=== PATIENT | male | born 1935 | race Caucasian/White ===

== ENCOUNTER 2016-08-16 11:05 | Emergency (ER) | payer MEDICARE, OTHER ==
[~2016-08-16] VITALS: Ht 175.3 cm; Wt 97.2 kg
[~2016-08-16 11:05] MED LIST: ALLO300 PO; COZA25TA PO; KETO2SHA5 TOP; METO10TA PO; OMEP20TA39 PO; PATA0.2S EACH EYE; PROBCAP4 PO; RAPA8CAP PO; ROSU10 PO; [UNRECOGNIZED DRUG - OTHER] TOP
[2016-08-16 11:08] VITALS: BP 134/78; PULSE 54; RESP 16; TEMP 97.4; O2SAT 97
[2016-08-16] MEDS ORDERED: SODIUM CHLOR 0.9% 1000 ML INJ 1,000 ML IV SCH (11:21)
[2016-08-16 11:29] LABS: BLOOD, URINE NEG (NEG); GLUCOSE,URINE NEG (NEG); KETONE, URINE NEG (NEG); NITRITE,URINE NEG (NEG)
[2016-08-16] MEDS ORDERED: SODIUM CHLORIDE 0.9% FLUSH 5 ML FLUSH IVF PRN (11:30)
[2016-08-16 11:34] VITALS: RESP 16; O2SAT 97
[2016-08-16 11:38] LABS: AUTOMATED NEUTROPHIL # 6.5 TH/MM3 (1.8-7.7); BASOPHIL # 0.1 TH/MM3 (0-0.2); BASOPHIL % 0.7 % (0.0-2.0); EOSINOPHIL # 0.1 TH/MM3 (0-0.4); EOSINOPHIL % 1.4 % (0.0-4.0); LYMPH % 15.9 % (9.0-44.0); LYMPHOCYTE # 1.4 TH/MM3 (1.0-4.8); MEAN CELL VOLUME 83.4 FL (80.0-100.0); MEAN CORPUSCULAR HEMOGLOBIN 27.7 PG (27.0-34.0); MEAN CORPUSCULAR HGB CONC 33.2 % (32.0-36.0); MONO % 6.4 % (0.0-8.0); NEUT % 75.6 % (16.0-70.0); PLATELET COUNT 214 TH/MM3 (150-450); RED BLOOD COUNT 4.55 MIL/MM3 (4.50-5.90); WHITE BLOOD COUNT 8.6 TH/MM3 (4.0-11.0)
[2016-08-16 11:39] LABS: HEMO FLAGS DIFF FINAL
--- NOTE | 2016-08-16 11:41 | PD ---
HPI Chief Complaint: GI Complaint Time Seen by Provider: 11:14 Travel History International Travel<30 days: No Contact w/Intl Traveler<30days: No Traveled to known affect area: No History of Present Illness HPI The patient is a 81-year-old male who presents to the emergency department for abdominal pain and distention of 1 week's duration. The patient notes a one-week history of abdominal pain and distention, slightly worse after eating, with mild periumbilical lower abdominal pain. The patient does have a history of diverticulitis with similar symptoms in the past, however, underwent partial colectomy. The patient also has a previous history of cholecystectomy. The patient does have a history of ileus, is unsure if he has any previous history of bowel obstruction. The patient's last bowel movement was yesterday, slightly hard, states it was "constipated". The patient has been passing gas intermittently, denies any nausea or vomiting. The patient was able to eat cereal for breakfast without any significant symptoms. The patient denies any dysuria, frequency, or urgency. The patient was seen by his primary physician and referred to the emergency department for CT of the abdomen and pelvis. He denies any associated fever, chills, or sweats. PFSH Past Medical History Arthritis: Yes Asthma: Yes Blood Disorders: No Heart Rhythm Problems: No Cancer: Yes (SKIN, PROSTATE) Cardiovascular Problems: Yes ([place]) High Cholesterol: Yes Chemotherapy: No Chest Pain: No Congestive Heart Failure: No Diabetes: No Diminished Hearing: No Diverticulitis: Yes Endocrine: No Gastrointestinal Disorders: Yes (HX DIVERTICULITIS ;GERD, CURRENT ABD. PAIN BEING REVIEWED) GERD: Yes Glaucoma: No Gout: Yes Genitourinary: Yes (HX PROSTATE CANCER- RADIATION [place] 2007) Hepatitis: No Hiatal Hernia: Yes Hypertension: Yes Immune Disorder: No Implanted Vascular Access Dvce: Yes Kidney Stones: No Medical other: No Musculoskeletal: Yes (ARTHRITIS, RIGHT SHOULDER PAIN, BACK SPASMS) Neurologic: No Psychiatric: No Reproductive: No Respiratory: Yes (ASTHMA (ACTIVITY INDUCED) ) Immunizations Current: Yes Myocardial Infarction: No Pancreatitis: Yes Radiation Therapy: No Renal Failure: No Thyroid Disease: No Ulcer: No PNEUMOCCOCAL Vaccine (Year): 2010 Past Surgical History Abdominal Surgery: Yes (CHOLECYSTECTOMYAPPY; UMB. HERNIA REP., PTL. COLECTOMY/ ILEOSTOMY, ) AICD: No Appendectomy: Yes Body Medical Devices: MESH UMBILICAL HERNIA Cardiac Surgery: No Cholecystectomy: Yes Ear Surgery: No Endocrine Surgery: No Eye Surgery: Yes (CATARACT FILIPE., FILIPE. VITRECTOMY) Genitourinary Surgery: Yes (TURP) Gynecologic Surgery: No Joint Replacement: Yes (PARTIAL LEFT KNEE) Neurologic Surgery: No Oral Surgery: No Pacemaker: No Thoracic Surgery: No Other Surgery: Yes (LEFT KNEE REPLACEMENT 2010, MULTIPLE SKIN CA REMOVALS) Social History Alcohol Use: Yes (OCCASIONAL BEER) Tobacco Use: No Substance Use: No Allergies-Medications (Allergen,Severity, Reaction): Coded Allergies: Dilaudid (Verified Adverse Reaction, Severe, Nausea/Vomiting, 08/16/16) PT DENIES, STATES HE GOT SICK D/T ODORS IN AREA, NOT DILAUDID Morphine (Verified Adverse Reaction, Severe, HEADACHE , 08/16/16) Reported Meds & Prescriptions Reported Meds & Active Scripts Active Reported Flonase Allergy Relief Nasal [place] (Fluticasone Nasal [place]) 50 Mcg/Act [place] 50 Mcg EACH NARE BID Ventolin Hfa 18 GM Inh (Albuterol Sulfate) 90 Mcg/Act Aer 1 Puff INH Q4H PRN Rapaflo (Silodosin) 8 Mg Cap 8 Mg PO DAILY Pataday Opth Drops (Olopatadine HCl) 0.2 % Drops 1 Drop EACH EYE DAILY Crestor (Rosuvastatin Calcium) 10 Mg Tab 10 Mg PO DAILY Omeprazole 40 Mg Cap 40 Mg PO DAILY Losartan (Losartan Potassium) 25 Mg Tab 25 Mg PO DAILY Ketoconazole Topical 2% Cream 1 Applic TOPICAL BID Zyloprim (Allopurinol) 100 Mg Tab 50 Mg PO DAILY Review of Systems Except as stated in HPI: all other systems reviewed are Neg General / Constitutional: No: Fever Cardiovascular: No: Chest Pain or Discomfort Respiratory: No: Shortness of Breath Gastrointestinal: Positive: Abdominal Pain, Constipation, Changes in Bowel Habits, No: Nausea, Vomiting, Diarrhea, Loss of Appetite Genitourinary: No: Urgency, Frequency, Dysuria Physical Exam Narrative GENERAL: Awake, alert, pleasant 81-year-old male who appears his stated age and is in no acute respiratory distress. SKIN: Warm and dry. HEAD: Atraumatic. Normocephalic. EYES: No injection or drainage. ENT: No nasal bleeding or discharge. Mucous membranes pink and moist. NECK: Trachea midline. No JVD. CARDIOVASCULAR: Regular, bradycardic with a heart rate in the 50s. RESPIRATORY: No accessory muscle use. Clear to auscultation. Breath sounds equal bilaterally. GASTROINTESTINAL: Abdomen slightly distended and tympanic. Mild tenderness of the periumbilical suprapubic region. No rebound tenderness, guarding, or rigidity. Large scar midline to right aspect of the abdomen. MUSCULOSKELETAL: No obvious deformities. No clubbing. No cyanosis. No edema. NEUROLOGICAL: Awake and alert. No obvious cranial nerve deficits. Motor grossly within normal limits. Normal speech. PSYCHIATRIC: Appropriate mood and affect; insight and judgment normal. Data Data Last Documented VS Vital Signs Date Time Temp Pulse Resp B/P Pulse Ox O2 Delivery O2 Flow Rate FiO2 08/16/16 11:34 16 97 Room Air 08/16/16 11:08 97.4 54 134/78 Orders Urinalysis - C+S If Indicated (08/16/16 11:10) Complete Blood Count With Diff (08/16/16 11:21) Comprehensive Metabolic Panel (08/16/16 11:21) Lipase (08/16/16 11:21) Lactic Acid (08/16/16 11:21) Ct Abd/Pel W/O Iv Contrast (08/16/16 11:21) Iv Access Insert/Monitor (08/16/16 11:21) Ecg Monitoring (08/16/16 11:21) Oximetry (08/16/16 11:21) Sodium Chlor 0.9% 1000 Ml Inj (Ns 1000 M (08/16/16 11:21) Sodium Chloride 0.9% Flush (Ns Flush) (08/16/16 11:30) Metronidazole 500 Mg Inj (Flagyl 500 Mg (08/16/16 12:30) Ciprofloxacin (Cipro) (08/16/16 12:30) Labs Laboratory Tests Test 08/16/16 08/16/16 11:15 11:25 Urine Color YELLOW Urine Turbidity CLEAR Urine pH 6.0 Urine Specific [place] 1.015 Urine Protein 30 mg/dL Urine Glucose (UA) NEG mg/dL Urine Ketones NEG mg/dL Urine Occult Blood NEG Urine Nitrite NEG Urine Bilirubin NEG Urine Leukocyte Esterase NEG Urine WBC 0-2 /hpf Urine Squamous Epithelial 0-5 /hpf Cells Microscopic Urinalysis Comment CULT NOT INDICATED White Blood Count 8.6 TH/MM3 Red Blood Count 4.55 MIL/MM3 Hemoglobin 12.6 GM/DL Hematocrit 38.0 % Mean Corpuscular Volume 83.4 FL Mean Corpuscular Hemoglobin 27.7 PG Mean Corpuscular Hemoglobin 33.2 % Concent Red Cell Distribution Width 16.0 % Platelet Count 214 TH/MM3 Mean Platelet Volume 8.4 FL Neutrophils (%) (Auto) 75.6 % Lymphocytes (%) (Auto) 15.9 % Monocytes (%) (Auto) 6.4 % Eosinophils (%) (Auto) 1.4 % Basophils (%) (Auto) 0.7 % Neutrophils # (Auto) 6.5 TH/MM3 Lymphocytes # (Auto) 1.4 TH/MM3 Monocytes # (Auto) 0.5 TH/MM3 Eosinophils # (Auto) 0.1 TH/MM3 Basophils # (Auto) 0.1 TH/MM3 CBC Comment DIFF FINAL Differential Comment Sodium Level 142 MEQ/L Potassium Level 4.3 MEQ/L Chloride Level 108 MEQ/L Carbon Dioxide Level 25.2 MEQ/L Anion Gap 9 MEQ/L Blood Urea Nitrogen 16 MG/DL Creatinine 1.30 MG/DL Estimat Glomerular Filtration 53 ML/MIN Rate Random Glucose 129 MG/DL Lactic Acid Level 1.4 mmol/L Calcium Level 9.2 MG/DL Total Bilirubin 0.4 MG/DL Aspartate Amino Transf 27 U/L (AST/SGOT) Alanine Aminotransferase 33 U/L (ALT/SGPT) Alkaline Phosphatase 59 U/L Total Protein 7.2 GM/DL Albumin 3.6 GM/DL Lipase 211 U/L [facility] Medical Decision Making Medical Screen Exam Complete: Yes Emergency Medical Condition: Yes Medical Record Reviewed: Yes Interpretation(s) Laboratory Tests Test 08/16/16 08/16/16 11:15 11:25 Urine Color YELLOW Urine Turbidity CLEAR Urine pH 6.0 Urine Specific [place] 1.015 Urine Protein 30 mg/dL Urine Glucose (UA) NEG mg/dL Urine Ketones NEG mg/dL Urine Occult Blood NEG Urine Nitrite NEG Urine Bilirubin NEG Urine Leukocyte Esterase NEG Urine WBC 0-2 /hpf Urine Squamous Epithelial 0-5 /hpf Cells Microscopic Urinalysis Comment CULT NOT INDICATED White Blood Count 8.6 TH/MM3 Red Blood Count 4.55 MIL/MM3 Hemoglobin 12.6 GM/DL Hematocrit 38.0 % Mean Corpuscular Volume 83.4 FL Mean Corpuscular Hemoglobin 27.7 PG Mean Corpuscular Hemoglobin 33.2 % Concent Red Cell Distribution Width 16.0 % Platelet Count 214 TH/MM3 Mean Platelet Volume 8.4 FL Neutrophils (%) (Auto) 75.6 % Lymphocytes (%) (Auto) 15.9 % Monocytes (%) (Auto) 6.4 % Eosinophils (%) (Auto) 1.4 % Basophils (%) (Auto) 0.7 % Neutrophils # (Auto) 6.5 TH/MM3 Lymphocytes # (Auto) 1.4 TH/MM3 Monocytes # (Auto) 0.5 TH/MM3 Eosinophils # (Auto) 0.1 TH/MM3 Basophils # (Auto) 0.1 TH/MM3 CBC Comment DIFF FINAL Differential Comment Sodium Level 142 MEQ/L Potassium Level 4.3 MEQ/L Chloride Level 108 MEQ/L Carbon Dioxide Level 25.2 MEQ/L Anion Gap 9 MEQ/L Blood Urea Nitrogen 16 MG/DL Creatinine 1.30 MG/DL Estimat Glomerular Filtration 53 ML/MIN Rate Random Glucose 129 MG/DL Lactic Acid Level 1.4 mmol/L Calcium Level 9.2 MG/DL Total Bilirubin 0.4 MG/DL Aspartate Amino Transf 27 U/L (AST/SGOT) Alanine Aminotransferase 33 U/L (ALT/SGPT) Alkaline Phosphatase 59 U/L Total Protein 7.2 GM/DL Albumin 3.6 GM/DL Lipase 211 U/L Differential Diagnosis Differential diagnoses includes partial small bowel obstruction, ileus, pancreatitis, hernia, incarcerated hernia, diverticulitis, UTI. Narrative Course IV was established, labs were drawn and sent, and the patient was placed on cardiac telemetry monitoring and continuous pulse oximetry monitoring. UA was sent to lab. The patient declined pain medications. CT of the abdomen and pelvis was ordered. The patient's labs are unremarkable, white count is normal , LFTs are unremarkable, UA does not reveal infection. CT of the abdomen and pelvis reveals uncomplicated diverticulitis, no other acute findings. Therefore , the patient was administered Cipro 500 mg orally and Flagyl 500 mg intravenously. The patient will be discharged home on Flagyl, Cipro, and [place]. He is advised to follow-up with his primary physician and return if symptoms worsen or progress. Diagnosis Primary Impression: Diverticulitis Qualified Code: K57.32 - Diverticulitis of large intestine without perforation or abscess without bleeding Patient Instructions: General Instructions Additional Instructions: Medications as directed. Follow-up with your primary physician. Please provide the patient a copy of his labs and CT report at discharge. Return if symptoms worsen or progress. Med/Other Pt SpecificInfo: Prescription(s) given Scripts Hydrocodone-Acetaminophen ([place])5-325 mg Tab1 Tab PO Q6H PRN (PAIN) #15 TAB Ref 0 Prov:Michael Casanova MD 08/16/16 Metronidazole (Flagyl)500 Mg [id number] Mg PO BID 7 Days Ref 0 Prov:Michael Casanova MD 08/16/16 Ciprofloxacin (Cipro)500 Mg Phr833 Mg PO BID 7 Days Ref 0 Prov:Michael Casanova MD 08/16/16 Disposition: 01 DISCHARGE HOME Condition: Stable Michael Casanova MD Aug 16, 2016 11:41
[2016-08-16 11:42] LABS: URINE COLOR YELLOW (YELLW/STRAW)
[2016-08-16 11:43] LABS: COMMENT (UR) CULT NOT INDICATED; CULTURE IF INDICATED CULT NOT INDICATED; SQUAMOUS EPITHELIAL CELL URINE 0-5 /hpf (0-5); WBC, URINE 0-2 /hpf (0-5)
[2016-08-16 11:46] LABS: CHLORIDE 108 MEQ/L (98-107); POTASSIUM 4.3 MEQ/L (3.5-5.1); SODIUM (NA) 142 MEQ/L (136-145)
[2016-08-16] MEDS ORDERED: KETO2CRE TOPICAL (11:47)
[2016-08-16] MEDS ORDERED: VENTAER INH (11:47)
[2016-08-16] MEDS ORDERED: RAPA8CAP PO (11:47)
[2016-08-16] MEDS ORDERED: PATA0.2S EACH EYE (11:47)
[2016-08-16] MEDS ORDERED: OMEP40CA2 PO (11:47)
[2016-08-16] MEDS ORDERED: ALLO100 PO (11:47)
[2016-08-16] MEDS ORDERED: ROSU10 PO (11:47)
[2016-08-16] MEDS ORDERED: FLUT1SPR5 EACH NARE (11:47)
[2016-08-16] MEDS ORDERED: LOSA25TA PO (11:47)
[2016-08-16 11:51] LABS: ANION GAP 9 MEQ/L (5-15); BICARBONATE 25.2 MEQ/L (21.0-32.0); BLOOD UREA NITROGEN 16 MG/DL (7-18)
[2016-08-16 11:54] LABS: ALT (GPT) 33 U/L (12-78); AST (GOT) 27 U/L (15-37); GLOMERULAR FILTRATION RATE 53 ML/MIN (>89)
[2016-08-16 11:55] LABS: TOTAL BILIRUBIN ADULT 0.4 MG/DL (0.2-1.0)
[2016-08-16 11:56] LABS: ALKALINE PHOSPHATASE 59 U/L (45-117)
--- NOTE | 2016-08-16 12:10 | RADHPO ---
EXAM DATE/TIME: 08/16/2016 11:48 [facility] COMPARISON: CT ABDOMEN & PELVIS W CONTRAST, November 11, 2014, 19:38. INDICATIONS : Diffuse abdominal pain and constipation. ORAL CONTRAST: No oral contrast ingested. RADIATION DOSE: 21.15 CTDIvol (mGy) MEDICAL HISTORY : Diverticulitis. Gastroesophageal reflux disease. Carcinoma, prostate. SURGICAL HISTORY : Cholecystectomy. Appendectomy.Colectomy. Ileostomy. ENCOUNTER: Initial ACUITY: 1 day PAIN SCALE: 2/10 LOCATION: abdomen/pelvis TECHNIQUE: Volumetric scanning of the abdomen and pelvis was performed. Using automated exposure control and ad justment of the mA and/or kV according to patient size, radiation dose was kept as low as reasonably achievable to obtain optimal diagnostic quality images. FINDINGS: Degenerative facet arthritic changes are again noted of the lower lumbar spine and clips in the regio n of the prostate. Gallbladder is not visualized and bilateral renal cysts are unchanged. Liver and s pleen adrenal glands and pancreas are normal with benign bile distribution with uncomplicated diverti culitis of the descending colon, proximal sigmoid colon and transverse colon. The calyceal stone note d in the left kidney on prior examination is not apparent. There is no evidence of hydronephrosis. CONCLUSION: No acute intra-abdominal or pelvic process. Stable CT scan with uncomplicated diverticulitis of the t ransverse, descending and sigmoid colon. Gallbladder is not visualized. Sebastián Bolden MD on August 16, 2016 at 12:03 Board Certified Radiologist. This report was verified electronically.
[2016-08-16] MEDS ORDERED: CIPR-9 PO (12:29)
[2016-08-16] MEDS ORDERED: NORC5TAB PO (12:29)
[2016-08-16] MEDS ORDERED: METR-1 PO (12:29)
[2016-08-16] MEDS ORDERED: CIPROFLOXACIN 500 MG TAB PO ONE (12:30)
[2016-08-16] MEDS ORDERED: metroNIDAZOLE 500 MG INJ 100 ML IV ONE (12:30)
[2016-08-16 12:48] VITALS: BP 114/73; PULSE 51; RESP 16; O2SAT 96
[2016-08-16 13:51] VITALS: BP 123/72; PULSE 57; RESP 18; O2SAT 99
== END 2016-08-16 14:13 | disposition home or self-care (01) ==
LOC: PHED 11:05
DX: K57.32 Diverticulitis of large intestine without perforation or abscess without bleeding (principal); R14.0 Abdominal distension (gaseous); J45.909 Unspecified asthma, uncomplicated; E78.00 Pure hypercholesterolemia, unspecified; I10 Essential (primary) hypertension
CPT/HCPCS: 74176; 80053; 81001; 83605; 83690; 85025; 96361; 96365; 99284; J7030

== ENCOUNTER 2017-05-25 04:01 | Inpatient (IN) | payer MEDICARE, OTHER ==
[~2017-05-25] VITALS: Ht 175.3 cm; Wt 95.1 kg
[2017-05-25] VITALS (10 sets, daily range): BP systolic 136–149; BP diastolic 80–94; PULSE 74–86; RESP 16–20; TEMP 96.9–98.1; O2SAT 95–97
[~2017-05-25 04:01] MED LIST changes: +ALLO100 PO; -ALLO300 PO; +CIPR-9 PO; -COZA25TA PO; +FLUT1SPR5 EACH NARE; +KETO2CRE TOPICAL; -KETO2SHA5 TOP; +LOSA25TA PO; -METO10TA PO; +METR-1 PO; +NORC5TAB PO; -OMEP20TA39 PO; +OMEP40CA2 PO; -PROBCAP4 PO; +VENTAER INH; -[UNRECOGNIZED DRUG - OTHER] TOP
[2017-05-25] MEDS ORDERED: SODIUM CHLOR 0.9% 1000 ML INJ 1,000 ML IV SCH ×2 (04:47)
[2017-05-25] MEDS ORDERED: SODIUM CHLORIDE 0.9% FLUSH 10 ML FLUSH IV FLUSH PRN ×6 (05:00→07:00)
--- NOTE | 2017-05-25 05:01 | PD ---
HPI Chief Complaint: Abdominal Pain Time Seen by Provider: 04:46 Travel History International Travel<30 days: No Contact w/Intl Traveler<30days: No Traveled to known affect area: No History of Present Illness HPI The patient is a 81-year-old male that has a long history of diverticulitis who complains of lower abdominal pain for 1 day. He has had 18 inches of his large bowel [place] [address] Ovalle. He denies any fever, chills, nausea, vomiting or diarrhea. His pain intensity as a 7/10 and sharp in quality. He denies any melanotic or bloody stools. He has had multiple CAT scans but has not had a CAT scan of the last year. His surgeries include a mesh on the anterior abdominal wall which was put in many years ago. PFSH Past Medical History Arthritis: Yes Asthma: Yes Blood Disorders: No Heart Rhythm Problems: No Cancer: Yes (SKIN, PROSTATE) Cardiovascular Problems: Yes ([place]) High Cholesterol: Yes Chemotherapy: No Chest Pain: No Congestive Heart Failure: No Diabetes: No Diminished Hearing: No Diverticulitis: Yes Endocrine: No Gastrointestinal Disorders: Yes (HX DIVERTICULITIS ;GERD, CURRENT ABD. PAIN BEING REVIEWED) GERD: Yes Glaucoma: No Gout: Yes Genitourinary: Yes (HX PROSTATE CANCER- RADIATION [place] 2007) Hepatitis: No Hiatal Hernia: Yes Hypertension: Yes Immune Disorder: No Implanted Vascular Access Dvce: Yes Kidney Stones: No Musculoskeletal: Yes (ARTHRITIS, RIGHT SHOULDER PAIN, BACK SPASMS) Neurologic: No Psychiatric: No Reproductive: No Respiratory: Yes (ASTHMA (ACTIVITY INDUCED) ) Immunizations Current: Yes Myocardial Infarction: No Pancreatitis: Yes Radiation Therapy: No Renal Failure: No Thyroid Disease: No Ulcer: No PNEUMOCCOCAL Vaccine (Year): 2010 Past Surgical History Abdominal Surgery: Yes (CHOLECYSTECTOMYAPPY; UMB. HERNIA REP., PTL. COLECTOMY/ ILEOSTOMY, ) AICD: No Appendectomy: Yes Body Medical Devices: MESH UMBILICAL HERNIA Cardiac Surgery: No Cholecystectomy: Yes Ear Surgery: No Endocrine Surgery: No Eye Surgery: Yes (CATARACT FILIPE., FILIPE. VITRECTOMY) Genitourinary Surgery: Yes (TURP) Gynecologic Surgery: No Joint Replacement: Yes (PARTIAL LEFT KNEE) Neurologic Surgery: No Oral Surgery: No Pacemaker: No Thoracic Surgery: No Other Surgery: Yes (LEFT KNEE REPLACEMENT 2010, MULTIPLE SKIN CA REMOVALS) Social History Alcohol Use: Yes (OCCASIONAL BEER) Tobacco Use: No Substance Use: No Allergies-Medications (Allergen,Severity, Reaction): Coded Allergies: hydromorphone (Verified Adverse Reaction, Severe, Nausea/Vomiting, 05/25/17 ) PT DENIES, STATES HE GOT SICK D/T ODORS IN AREA, NOT DILAUDID morphine (Verified Adverse Reaction, Severe, HEADACHE , 05/25/17) Reported Meds & Prescriptions Reported Meds & Active Scripts Active Reported Flonase Nasal [place] (Fluticasone Nasal [place]) 50 Mcg/Act [place] 50 Mcg EACH NARE BID Ventolin Hfa 18 GM Inh (Albuterol Sulfate) 90 Mcg/Act Aer 1 Puff INH Q4H PRN Rapaflo (Silodosin) 8 Mg Cap 8 Mg PO DAILY Pataday Opth 0.2% (Olopatadine HCl) 0.2 % Drops 1 Drop EACH EYE DAILY Crestor (Rosuvastatin Calcium) 10 Mg Tab 10 Mg PO DAILY Omeprazole 40 Mg Cap 40 Mg PO DAILY Losartan (Losartan Potassium) 25 Mg Tab 25 Mg PO DAILY Ketoconazole Topical 2% Cream 1 Applic TOPICAL BID Zyloprim (Allopurinol) 100 Mg Tab 50 Mg PO DAILY Review of Systems Except as stated in HPI: all other systems reviewed are Neg Physical Exam Narrative GENERAL: The patient is alert, oriented 3 in moderate apparent distress with his abdominal discomfort. His vital signs are normal. SKIN: Focused skin assessment warm/dry. HEAD: Atraumatic. Normocephalic. EYES: Pupils equal and round. No scleral icterus. No injection or drainage. ENT: No nasal bleeding or discharge. Mucous membranes pink and moist. NECK: Trachea midline. No JVD. CARDIOVASCULAR: Regular rate and rhythm. No murmur appreciated. RESPIRATORY: No accessory muscle use. Clear to auscultation. Breath sounds equal bilaterally. GASTROINTESTINAL: Abdomen soft, with tenderness to direct palpation in the bilateral lower quadrants, left worse than right. The abdomen is minimally distended. Hepatic and splenic margins not palpable. No guarding or rebound is present. MUSCULOSKELETAL: No obvious deformities. No clubbing. No cyanosis. No edema. NEUROLOGICAL: Awake and alert. No obvious cranial nerve deficits. Motor grossly within normal limits. Normal speech. PSYCHIATRIC: Appropriate mood and affect; insight and judgment normal. Data Data Last Documented VS Vital Signs Date Time Temp Pulse Resp B/P (MAP) Pulse Ox O2 Delivery O2 Flow Rate FiO2 05/25/17 06:03 76 18 136/80 (98) 96 Room Air 05/25/17 04:[address] Abd/Pel W Iv Contrast(Rout) (05/25/17 04:46) Iv Access Insert/Monitor (05/25/17 04:46) Ecg Monitoring (05/25/17 04:46) Oximetry (05/25/17 04:46) Sodium Chloride 0.9% Flush (Ns Flush) (05/25/17 05:00) Complete Blood Count With Diff (05/25/17 04:47) Comprehensive Metabolic Panel (05/25/17 04:47) Lipase (05/25/17 04:47) Urinalysis - C+S If Indicated (05/25/17 04:47) Sodium Chlor 0.9% 1000 Ml Inj (Ns 1000 M (05/25/17 04:47) Sodium Chloride 0.9% Flush (Ns Flush) (05/25/17 05:00) Iohexol 350 Inj (Omnipaque 350 Inj) (05/25/17 05:40) Morphine Inj (Morphine Inj) (05/25/17 06:00) Labs Laboratory Tests Test 05/25/17 04:30 05/25/17 05:20 White Blood Count 10.6 TH/MM3 Red Blood Count 4.80 MIL/MM3 Hemoglobin 13.5 GM/DL Hematocrit 40.6 % Mean Corpuscular Volume 84.6 FL Mean Corpuscular Hemoglobin 28.2 PG Mean Corpuscular Hemoglobin Concent 33.4 % Red Cell Distribution Width 14.9 % Platelet Count 215 TH/MM3 Mean Platelet Volume 8.4 FL Neutrophils (%) (Auto) 77.8 % Lymphocytes (%) (Auto) 12.0 % Monocytes (%) (Auto) 8.0 % Eosinophils (%) (Auto) 1.8 % Basophils (%) (Auto) 0.4 % Neutrophils # (Auto) 8.3 TH/MM3 Lymphocytes # (Auto) 1.3 TH/MM3 Monocytes # (Auto) 0.8 TH/MM3 Eosinophils # (Auto) 0.2 TH/MM3 Basophils # (Auto) 0.0 TH/MM3 CBC Comment DIFF FINAL Differential Comment Blood Urea Nitrogen 17 MG/DL Creatinine 1.30 MG/DL Random Glucose 151 MG/DL Total Protein 7.2 GM/DL Albumin 3.8 GM/DL Calcium Level 9.3 MG/DL Alkaline Phosphatase 66 U/L Aspartate Amino Transf (AST/SGOT) 22 U/L Alanine Aminotransferase (ALT/SGPT) 30 U/L Total Bilirubin 0.3 MG/DL Sodium Level 139 MEQ/L Potassium Level 4.4 MEQ/L Chloride Level 104 MEQ/L Carbon Dioxide Level 24.3 MEQ/L Anion Gap 11 MEQ/L Estimat Glomerular Filtration Rate 53 ML/MIN Lipase 289 U/L Urine Color YELLOW Urine Turbidity CLEAR Urine pH 6.0 Urine Specific [place] 1.029 Urine Protein 100 mg/dL Urine Glucose (UA) NEG mg/dL Urine Ketones NEG mg/dL Urine Occult Blood NEG Urine Nitrite NEG Urine Bilirubin NEG Urine Leukocyte Esterase NEG Urine RBC 0-2 /hpf Urine WBC 0-2 /hpf Urine Squamous Epithelial Cells 0-5 /hpf Urine Bacteria NONE /hpf Microscopic Urinalysis Comment CULT NOT INDICATED MDM Medical Decision Making Medical Screen Exam Complete: Yes Emergency Medical Condition: Yes Medical Record Reviewed: Yes Interpretation(s) The CBC is normal except for 78% neutrophils. The complete metabolic profile shows a GFR of 53, glucose of 151 but is otherwise unremarkable. The lipase is normal. The urinalysis is normal and culture is not indicated. The CT abdomen/ pelvis shows partial small bowel obstruction appearing to occur at the anastomosis in the right lower quadrant. There is diverticulosis on the left side of the colon but no acute diverticulitis. Differential Diagnosis Diverticulitis, diverticular abscess, intra-abdominal abscess, small bowel obstruction, intestinal perforation, electrolyte disorder, anemia, pancreatitis- unlikely Narrative Course The patient has an early or partial small bowel obstruction. He is uncomfortable with his abdominal pain. He has had multiple surgeries including a mesh that was put in many years ago. At this time it appears unlikely that he will need surgery for this obstruction and his obstruction will resolve with nothing by mouth and fluids. He will be admitted to Dr. Hsieh of the [facility]. Diagnosis Primary Impression: Small bowel obstruction due to adhesions Additional Impression: Diverticulosis Admitting Information Admitting Physician Requests: Admit Kaveh Bowman MD May 25, 2017 05:01
[2017-05-25 05:06] LABS: AUTOMATED NEUTROPHIL # 8.3 TH/MM3 (1.8-7.7); BASOPHIL % 0.4 % (0.0-2.0); EOSINOPHIL # 0.2 TH/MM3 (0-0.4); EOSINOPHIL % 1.8 % (0.0-4.0); HEMATOCRIT 40.6 % (39.0-51.0); HEMOGLOBIN 13.5 GM/DL (13.0-17.0); LYMPHOCYTE # 1.3 TH/MM3 (1.0-4.8); MEAN CELL VOLUME 84.6 FL (80.0-100.0); MEAN CORPUSCULAR HEMOGLOBIN 28.2 PG (27.0-34.0); MEAN CORPUSCULAR HGB CONC 33.4 % (32.0-36.0); MEAN PLATELET VOLUME 8.4 FL (7.0-11.0); MONOCYTE # 0.8 TH/MM3 (0-0.9); NEUT % 77.8 % (16.0-70.0); PLATELET COUNT 215 TH/MM3 (150-450); RED CELL DISTRIBUTION WIDTH 14.9 % (11.6-17.2); WHITE BLOOD COUNT 10.6 TH/MM3 (4.0-11.0)
[2017-05-25 05:17] LABS: CHLORIDE 104 MEQ/L (98-107); SODIUM (NA) 139 MEQ/L (136-145)
[2017-05-25 05:20] LABS: ALBUMIN 3.8 GM/DL (3.4-5.0); BICARBONATE 24.3 MEQ/L (21.0-32.0); CALCIUM 9.3 MG/DL (8.5-10.1); GLUCOSE,RANDOM 151 MG/DL (74-106); LIPASE 289 U/L (73-393)
[2017-05-25 05:21] LABS: BLOOD UREA NITROGEN 17 MG/DL (7-18)
[2017-05-25 05:23] LABS: ALT (GPT) 30 U/L (12-78); AST (GOT) 22 U/L (15-37); GLOMERULAR FILTRATION RATE 53 ML/MIN (>89)
[2017-05-25 05:25] LABS: TOTAL BILIRUBIN ADULT 0.3 MG/DL (0.2-1.0); TOTAL PROTEIN 7.2 GM/DL (6.4-8.2)
[2017-05-25 05:26] LABS: ALKALINE PHOSPHATASE 66 U/L (45-117)
[2017-05-25 05:28] LABS: BILIRUBIN, URINE NEG (NEG); BLOOD, URINE NEG (NEG); GLUCOSE,URINE NEG (NEG); KETONE, URINE NEG (NEG); NITRITE,URINE NEG (NEG); URINE LEUKOCYTE ESTERASE NEG (NEG)
[2017-05-25 05:34] LABS: RBC, URINE 0-2 /hpf (0-3); SQUAMOUS EPITHELIAL CELL URINE 0-5 /hpf (0-5); URINE COLOR YELLOW (YELLW/STRAW); WBC, URINE 0-2 /hpf (0-5)
[2017-05-25] MEDS ORDERED: IOHEXOL 350 MG/ML 10 ML VIAL (for RAD DIAG) IVCONTRAST ONE ×2 (05:40)
[2017-05-25] MEDS ORDERED: MORPHINE SULFATE 2 MG/ML INJ IV PUSH ONE ×2 (06:00)
--- NOTE | 2017-05-25 06:11 | RADRPT ---
EXAM DATE/TIME: 05/25/2017 05:38 [facility] COMPARISON: CT ABDOMEN & PELVIS W CONTRAST, November 11, 2014, 19:38. INDICATIONS : Low abdominal pain for 1 day. Prior history of diverticulitis. IV CONTRAST: 97 cc Omnipaque 350 (iohexol) IV ORAL CONTRAST: No oral contrast ingested. RADIATION DOSE: 20.35 CTDIvol (mGy) ; Patient body habitus MEDICAL HISTORY : Diverticulitis. Carcinoma, prostate. Pancreatitis.GERD, Gout, hiatal hernia SURGICAL HISTORY : Cholecystectomy. Appendectomy.Umbilical hernia repair.TURP ENCOUNTER: Initial ACUITY: 1 day PAIN SCALE: 8/10 LOCATION: lower quadrant abdomen TECHNIQUE: Volumetric scanning of the abdomen and pelvis was performed. Using automated exposure control and ad justment of the mA and/or kV according to patient size, radiation dose was kept as low as reasonably achievable to obtain optimal diagnostic quality images. DICOM format image data is available electro nically for review and comparison. FINDINGS: LOWER LUNGS: The visualized lower lungs are clear. LIVER: Homogeneous density without lesion. There is no dilation of the biliary tree. No calcified gallston es. SPLEEN: Normal size without lesion. PANCREAS: Within normal limits. KIDNEYS: Several cysts in both kidneys measuring up to 3 cm in size. No stones or hydronephrosis. ADRENAL GLANDS: Within normal limits. VASCULAR: There is no aortic aneurysm. BOWEL/MESENTERY: No evidence of diverticulitis but there are upper limits of normal to mildly distended and indurated appearing loops of small bowel, articular iliac the level of the mid ileum in the lower abdomen. The distal and terminal ileum are decompressed. There is a right lower quadrant small bowel anastomosis n oted and there does appear to be some caliber change in this region. ABDOMINAL WALL: Within normal limits. RETROPERITONEUM: There is no lymphadenopathy. BLADDER: No wall thickening or mass. REPRODUCTIVE: Within normal limits. INGUINAL: There is no lymphadenopathy or hernia. MUSCULOSKELETAL: No acute bony abnormality. CONCLUSION: 1. Partial small bowel obstruction and appearing to occur at the anastomosis in the right lower quadr ant. 2. Diverticulosis of the left side of the colon but no acute diverticulitis. Rickey Galvez MD on May 25, 2017 at 6:03 Board Certified Radiologist. This report was verified electronically.
[2017-05-25] MEDS: SODIUM CHLOR 0.9% 1000 ML INJ 1,000 ML IV SCH ×4 (06:58→17:00)
[2017-05-25] MEDS ORDERED: LACTULOSE SYRUP 20 GM/30 ML CUP PO PRN ×2 (07:00)
[2017-05-25] MEDS ORDERED: BISACODYL 10 MG SUPP RECTAL PRN ×2 (07:00)
[2017-05-25] MEDS ORDERED: SENNOSIDES 8.6 MG TAB PO PRN ×2 (07:00)
[2017-05-25] MEDS ORDERED: MAGNESIUM HYDROXIDE SUSP 30 ML CUP PO PRN ×2 (07:00)
[2017-05-25] MEDS ORDERED: NALOXONE HCL 0.4 MG/ML AMP IV PUSH PRN ×2 (07:00)
[2017-05-25] MEDS ORDERED: ONDANSETRON HCL 4 MG/2 ML VIAL IVP PRN ×2 (07:00)
[2017-05-25] MEDS ORDERED: MORPHINE SULFATE 4 MG/ML INJ IV PUSH PRN ×2 (07:00)
[2017-05-25] MEDS: DOCUSATE SODIUM 50 MG/SENNA 8.6 MG TAB PO SCH ×4 (08:45→20:58)
[2017-05-25] MEDS: SODIUM CHLORIDE 0.9% FLUSH 10 ML FLUSH IV FLUSH SCH ×4 (08:45→20:57)
--- NOTE | 2017-05-25 13:31 | HHI.HP ---
[facility] Primary Care Physician Jamila Allen MD Admission Diagnosis small bowel obstruction from adhesions, diverticulosis Diagnoses: Travel History International Travel<30 Days: No Contact w/Intl Traveler <30 Da: No Traveled to Known Affected Are: No History of Present Illness This is a pleasant 81 year-old female with past medical history of large bowel resection secondary to recurrent diverticulitis in 2013 who presents to the ER with a 2 day history of intermittent lower abdominal pain and discomfort. Patient states that 2 days ago he took some antibiotics in preparation for dental procedure which upset his stomach. He started to notice some gaseous distention of his stomach and then yesterday this pain got worse. It was intermittent. Moderate. No provocative or alleviating factors. The patient presented to the emergency department where abdominal CT scan showed a partial small bowel obstruction at the anastomosis. The patient did have a bowel movement last night. He is hungry and wants to eat. He has not had any nausea or vomiting. Review of Systems Constitutional: DENIES: Fever, Chills Eyes: DENIES: Blurred vision, Eye pain Ears, nose, mouth, throat: DENIES: Throat pain, Odynophagia Respiratory: DENIES: Shortness of breath Cardiovascular: DENIES: Chest pain, Palpitations Gastrointestinal: COMPLAINS OF: Abdominal pain, DENIES: Nausea, Vomiting Genitourinary: DENIES: Urgency, Dysuria Musculoskeletal: COMPLAINS OF: Neck pain (has muscle strain and left neck), DENIES: Muscle aches Integumentary: DENIES: Rash Neurologic: DENIES: Abnormal gait, Headache Psychiatric: DENIES: Anxiety, Confusion Past Family Social History Past Medical History Hypertension Osteoarthritis History of diverticulitis status post large bowel resection in 2013 Prostate cancer treated with radiation in 2007 GERD History of [place] Osteoarthritis Seasonal allergies Past Surgical History Laparoscopic cholecystectomy, mesh anterior abdominal wall, all resection Reported Medications Allergies Coded Allergies Type Severity Reaction Last Updated Verified hydromorphone Adverse Reaction Severe Nausea/Vomiting 05/25/17 Yes morphine Adverse Reaction Severe HEADACHE 05/25/17 Yes Active Scripts Medications Dose Route/Sig Max Daily Dose Days Date Category Flonase Nasal Equality (Fluticasone Nasal Equality) 50 Mcg/Act Equality 50 Mcg EACH NARE BID 08/16/16 Reported Ventolin Hfa 18 GM Inh (Albuterol Sulfate) 90 Mcg/Act Aer 1 Puff INH Q4H PRN 08/16/16 Reported Rapaflo (Silodosin) 8 Mg Cap 8 Mg PO DAILY 08/16/16 Reported Pataday Opth 0.2% (Olopatadine HCl) 0.2 % Drops 1 Drop EACH EYE DAILY 08/16/16 Reported Crestor (Rosuvastatin Calcium) 10 Mg Tab 10 Mg PO DAILY 08/16/16 Reported Omeprazole 40 Mg Cap 40 Mg PO DAILY 08/16/16 Reported Losartan (Losartan Potassium) 25 Mg Tab 25 Mg PO DAILY 08/16/16 Reported Ketoconazole Topical 2% Cream 1 Applic TOPICAL BID 08/16/16 Reported Zyloprim (Allopurinol) 100 Mg Tab 50 Mg PO DAILY 08/16/16 Reported Allergies: Coded Allergies: hydromorphone (Verified Adverse Reaction, Severe, Nausea/Vomiting, 05/25/17 ) PT DENIES, STATES HE GOT SICK D/T ODORS IN AREA, NOT DILAUDID morphine (Verified Adverse Reaction, Severe, HEADACHE , 05/25/17) Family History Reviewed and noncontributory. Social History No history of tobacco use. . Physical Exam Vital Signs Vital Signs Date Time Temp Pulse Resp B/P (MAP) Pulse Ox O2 Delivery O2 Flow Rate FiO2 05/25/17 12:00 97.0 74 20 147/84 (105) 95 05/25/17 08:03 05/25/17 08:00 96.9 83 16 140/94 (109) 97 05/25/17 07:04 82 16 140/81 (100) 97 Room Air 05/25/17 06:03 76 18 136/80 (98) 96 Room Air 05/25/17 04:48 96 Room Air 05/25/17 04:47 85 18 136/86 (103) 96 Room Air 05/25/17 04:27 18 05/25/17 04:27 97.7 86 18 136/82 (100) 96 05/25/17 04:10 97.7 86 18 136/82 (100) 96 Physical Exam GENERAL: Well-nourished, well-developed elderly male patient. SKIN: Warm and dry. HEAD: Normocephalic. EYES: No scleral icterus. No injection or drainage. NECK: Supple, trachea midline. No JVD or lymphadenopathy. CARDIOVASCULAR: Regular rate and rhythm without murmurs, gallops, or rubs. RESPIRATORY: Breath sounds equal bilaterally. No accessory muscle use. GASTROINTESTINAL: Abdomen soft, mildly tender to palpation in the lower quadrants of the abdomen without guarding, nondistended. EXTREMITIES: No cyanosis, or edema. NEUROLOGICAL: Awake, alert, and oriented x 3. Non-focal. Laboratory Laboratory Tests Test 05/25/17 04:30 05/25/17 05:20 White Blood Count 10.6 Red Blood Count 4.80 Hemoglobin 13.5 Hematocrit 40.6 Mean Corpuscular Volume 84.6 Mean Corpuscular Hemoglobin 28.2 Mean Corpuscular Hemoglobin Concent 33.4 Red Cell Distribution Width 14.9 Platelet Count 215 Mean Platelet Volume 8.4 Neutrophils (%) (Auto) 77.8 Lymphocytes (%) (Auto) 12.0 Monocytes (%) (Auto) 8.0 Eosinophils (%) (Auto) 1.8 Basophils (%) (Auto) 0.4 Neutrophils # (Auto) 8.3 Lymphocytes # (Auto) 1.3 Monocytes # (Auto) 0.8 Eosinophils # (Auto) 0.2 Basophils # (Auto) 0.0 CBC Comment DIFF FINAL Differential Comment Blood Urea Nitrogen 17 Creatinine 1.30 Random Glucose 151 Total Protein 7.2 Albumin 3.8 Calcium Level 9.3 Alkaline Phosphatase 66 Aspartate Amino Transf (AST/SGOT) 22 Alanine Aminotransferase (ALT/SGPT) 30 Total Bilirubin 0.3 Sodium Level 139 Potassium Level 4.4 Chloride Level 104 Carbon Dioxide Level 24.3 Anion Gap 11 Estimat Glomerular Filtration Rate 53 Lipase 289 Urine Color YELLOW Urine Turbidity CLEAR Urine pH 6.0 Urine Specific [place] 1.029 Urine Protein 100 Urine Glucose (UA) NEG Urine Ketones NEG Urine Occult Blood NEG Urine Nitrite NEG Urine Bilirubin NEG Urine Leukocyte Esterase NEG Urine RBC 0-2 Urine WBC 0-2 Urine Squamous Epithelial Cells 0-5 Urine Bacteria NONE Microscopic Urinalysis Comment CULT NOT INDICATED Result Diagram: 05/25/1742905/25/17429 Imaging Last Impressions Abdomen/Pelvis CT 05/25/17445 Signed Impressions: Service Date/Time: Thursday, May 25, 2017 05:38 - CONCLUSION: 1. Partial small bowel obstruction and appearing to occur at the anastomosis in the right lower quadrant. 2. Diverticulosis of the left side of the colon but no acute diverticulitis. MD Harriet Mata VTE Risk Assessment Caprini VTE Risk Assessment: Mod/High Risk (score >= 2) Caprini Risk Assessment Model Point Value = 1 Point Value = 2 Point Value = 3 Point Value = 5 Age 41-60 Minor surgery BMI > 25 kg/m2 Swollen legs Varicose veins or History of unexplained or recurrent spontaneous Oral contraceptives or hormone replacement Sepsis (< 1 month) Serious lung disease, including pneumonia (< 1 month) Abnormal pulmonary function Acute myocardial infarction Congestive heart failure (< 1 month) History of inflammatory bowel disease Medical patient at bed rest Age 61-74 Arthroscopic surgery Major open surgery (> 45 min) Laparoscopic surgery (> 45 min) Malignancy Confined to bed (> 72 hours) Immobilizing plaster cast Central venous access Age >= 75 History of VTE Family history of VTE Factor V Leiden Prothrombin [id number] Lupus anticoagulant Anticardiolipin antibodies Elevated serum homocysteine Heparin-induced thrombocytopenia Other congenital or acquired thrombophilia Stroke (< 1 month) Elective arthroplasty Hip, pelvis, or leg fracture Acute spinal cord injury (< 1 month) Prophylaxis Regimen Total Risk Factor Score Risk Level Prophylaxis Regimen 0-1 Low Early ambulation 2 Moderate Order ONE of the following: *Sequential Compression Device (SCD) *Heparin 5000 units SQ BID 3-4 Higher Order ONE of the following medications: *Heparin 5000 units SQ TID *Enoxaparin/Lovenox 40 mg SQ daily (WT < 150 kg, CrCl > 30 mL/min) *Enoxaparin/Lovenox 30 mg SQ daily (WT < 150 kg, CrCl > 10-29 mL/min) *Enoxaparin/Lovenox 30 mg SQ BID (WT < 150 kg, CrCl > 30 mL/min) AND/OR *Sequential Compression Device (SCD) 5 or more Highest Order ONE of the following medications: *Heparin 5000 units SQ TID (Preferred with Epidurals) *Enoxaparin/Lovenox 40 mg SQ daily (WT < 150 kg, CrCl > 30 mL/min) *Enoxaparin/Lovenox 30 mg SQ daily (WT < 150 kg, CrCl > 10-29 mL/min) *Enoxaparin/Lovenox 30 mg SQ BID (WT < 150 kg, CrCl > 30 mL/min) AND *Sequential Compression Device (SCD) Assessment and Plan Assessment and Plan -Partial small bowel obstruction. He did have a bowel movement last night. Gen. surgery was consulted. He's being advanced to a liquid diet. Continue IV fluids. -Hypertension - resume home medications -GERD - continue PPI. -BPH. Continue Rapaflo. -Hyperlipidemia. Continue Crestor. -DVT prophylaxis with heparin subcutaneous. Ambreen Ventura MD May 25, 2017 13:31
[2017-05-25] MEDS ORDERED: ALBUTEROL SULFATE 90 MCG/ACT HFA 8 GM INHALER INH PRN ×2 (15:00)
[2017-05-25] MEDS: ACETAMINOPHEN 325 MG TAB PO PRN ×4 (15:09→21:24)
[2017-05-25] MEDS: HEPARIN SODIUM - SQ 10,000 UNITS/ML VIAL SQ SCH ×4 (15:10→21:02)
[2017-05-25] MEDS: KETOCONAZOLE 2% CREAM 15 GM TOPICAL SCH ×2 (20:59)
[2017-05-25] MEDS: FLUTICASONE PROPIONATE 50 MCG/ACT 16 GM NASAL SPRAY EACH NARE SCH ×2 (21:03)
[2017-05-26] VITALS: BP 131/93; PULSE 77; RESP 18; TEMP 98; O2SAT 94
--- NOTE | 2017-05-26 00:04 | MB ---
cc: NATHAN MARLOW MD DATE OF CONSULTATION 05/25/2017 REASON FOR CONSULTATION Partial bowel obstruction. HISTORY OF PRESENT ILLNESS The patient is a 81-year-old male who presents with history of several abdominal surgeries in the past including large bowel resection for diverticulitis 2013, history of colostomy with reversal. The patient presents with 2 day history of intermittent abdominal pain. He is also noted to have some nausea without vomiting and a dull pain located periumbilical and somewhat diffuse. The patient states the pain is persistent for the last 2 days, was somewhat achy in nature and was worse with palpation and movement and better with lying still. He was concerned and therefore came to the emergency department for further evaluation including CT scan with showing of concern for partial bowel obstruction with some stricturing at his anastomosis. The patient was noted to have a bowel movement yesterday and he is hungry at this time. Currently, on my evaluation the patient is not having any nausea or vomiting. MEDICAL HISTORY Hypertension, arthritis, diverticulitis, prostate cancer, reflux, [place], allergies. PAST SURGICAL HISTORY Cholecystectomy, abdominal hernia repair, appendectomy, ventral hernia repair, colostomy, ileostomy with reversal. SOCIAL HISTORY Denies smoking, IVDA. Occasional EtOH. ALLERGIES HYDROMORPHONE, MORPHINE. MEDICATIONS See EMR. FAMILY HISTORY Denies diabetes or hypertension. REVIEW OF SYSTEMS GENERAL: The patient denies eye pain, ear pain. NECK: Denies swelling or pain. LUNGS: Denies cough or wheeze. HEART: Denies palpitation or chest pain. ABDOMEN: Complains of abdominal pain, mild nausea. : Denies dysuria, hematuria. ENDOCRINE: Denies polyuria, polydipsia. INTEGUMENT: Denies masses or lesions. PSYCH: Good insight, good judgment. PHYSICAL EXAMINATION GENERAL: The patient no acute distress. VITAL SIGNS: Temperature vital signs 97, pulse 74, respirations 20, blood pressure 147/84, saturation 95%. HEENT: Normocephalic, atraumatic. Pupils equal, round, reactive. NECK: Supple. Trachea midline. LUNGS: Bilateral expansion. Clear. HEART: S1-S2 regular. ABDOMEN: Soft. Very minimal distension, very mild pain. No rebound. No guarding. Well-healed multiple open surgical scars. EXTREMITIES: Warm, well-perfused. NEUROLOGIC: 5/5 motor. GCS of 15. PSYCH: Appropriate sensorium, regular affect. LABORATORY AND DIAGNOSTIC DATA WBC 10.6, hemoglobin 13.5, hematocrit 40.6, platelets 215, sodium 139, potassium 4.4, BUN 17, creatinine 1.3, bili 0.3, AST 22, ALT 30, lipase 289. IMAGING STUDIES Imaging reviewed by myself showing partial small-bowel obstruction at the point of anastomosis in the right lower quadrant. Some diverticulitis of the left side of colon. ASSESSMENT The patient is a 81-year-old male who presents with abdominal pain, partial bowel obstruction, multiple surgeries. PLAN A full clinical, radiologic, laboratory workup, the patient with the above-named issues including partial small-bowel obstruction. At this point the patient is passing gas, having bowel movements. He does not note any significant vomiting and very mild nausea. His abdominal pain has improved significantly since being in the hospital and having IV fluids and pain control. At this point the patient can be on a clear liquid diet. We will continue nonoperative management, abdominal exams and checking and correcting the electrolyte abnormalities. If the patient does develop further nausea and vomiting we will place NG tube, however, we will continue to observe this patient for now. Consider getting small bowel follow-through if clinically warranted. However, again, will continue to follow and observe. MD RONALDO Velasquez/JOSÉ /11:08 PM /11:46 PM
[2017-05-26] MEDS: SODIUM CHLOR 0.9% 1000 ML INJ 1,000 ML IV SCH ×6 (02:37→22:57)
[2017-05-26] MEDS: HEPARIN SODIUM - SQ 10,000 UNITS/ML VIAL SQ SCH ×6 (06:07→21:31)
[2017-05-26 06:50] LABS: AUTOMATED NEUTROPHIL # 4.6 TH/MM3 (1.8-7.7); BASOPHIL % 0.4 % (0.0-2.0); EOSINOPHIL # 0.2 TH/MM3 (0-0.4); EOSINOPHIL % 2.3 % (0.0-4.0); HEMATOCRIT 38.6 % (39.0-51.0); HEMOGLOBIN 12.6 GM/DL (13.0-17.0); LYMPH % 20.6 % (9.0-44.0); LYMPHOCYTE # 1.4 TH/MM3 (1.0-4.8); MEAN CELL VOLUME 84.7 FL (80.0-100.0); MEAN CORPUSCULAR HEMOGLOBIN 27.6 PG (27.0-34.0); MEAN CORPUSCULAR HGB CONC 32.6 % (32.0-36.0); MEAN PLATELET VOLUME 8.1 FL (7.0-11.0); MONO % 7.6 % (0.0-8.0); MONOCYTE # 0.5 TH/MM3 (0-0.9); NEUT % 69.1 % (16.0-70.0); PLATELET COUNT 202 TH/MM3 (150-450); RED BLOOD COUNT 4.56 MIL/MM3 (4.50-5.90); RED CELL DISTRIBUTION WIDTH 14.8 % (11.6-17.2); WHITE BLOOD COUNT 6.7 TH/MM3 (4.0-11.0)
[2017-05-26 07:06] LABS: BICARBONATE 27.1 MEQ/L (21.0-32.0); CALCIUM 8.6 MG/DL (8.5-10.1)
[2017-05-26 07:10] LABS: CREATININE 1.1 MG/DL (0.60-1.30)
--- NOTE | 2017-05-26 07:52 | HHI.PR ---
Subjective Subjective Notes no issues, no vomiting, +diarrhea and gas Objective Vitals/I&O Vital Signs Date Time Temp Pulse Resp B/P (MAP) Pulse Ox O2 Delivery O2 Flow Rate FiO2 05/26/17 00:00 98.0 77 18 131/93 (106) 94 05/25/17 07:04 Room Air Labs Laboratory Tests Test 05/26/17 06:30 White Blood Count 6.7 Red Blood Count 4.56 Hemoglobin 12.6 Hematocrit 38.6 Mean Corpuscular Volume 84.7 Mean Corpuscular Hemoglobin 27.6 Mean Corpuscular Hemoglobin Concent 32.6 Red Cell Distribution Width 14.8 Platelet Count 202 Mean Platelet Volume 8.1 Neutrophils (%) (Auto) 69.1 Lymphocytes (%) (Auto) 20.6 Monocytes (%) (Auto) 7.6 Eosinophils (%) (Auto) 2.3 Basophils (%) (Auto) 0.4 Neutrophils # (Auto) 4.6 Lymphocytes # (Auto) 1.4 Monocytes # (Auto) 0.5 Eosinophils # (Auto) 0.2 Basophils # (Auto) 0.0 CBC Comment DIFF FINAL Differential Comment Blood Urea Nitrogen 10 Creatinine 1.10 Random Glucose 87 Calcium Level 8.6 Sodium Level 140 Potassium Level 4.3 Chloride Level 106 Carbon Dioxide Level 27.1 Anion Gap 7 Estimat Glomerular Filtration Rate 65 Abdomen: Other (multiple incisional scars, soft mild ttp no rebound, mild distension) A/P Assessment and Plan pSBO PLAN advance to full diet encourage oob check lytes continue non op mgnt Moises Rivera MD May 26, 2017 07:52
[2017-05-26 08:00] VITALS: BP 139/80; PULSE 72; RESP 18; TEMP 96.1; O2SAT 94
[2017-05-26] MEDS: TAMSULOSIN HCL 0.4 MG CAP PO SCH ×2 (08:16)
[2017-05-26] MEDS: ALLOPURINOL 100 MG TAB PO SCH ×2 (08:17)
[2017-05-26] MEDS: DOCUSATE SODIUM 50 MG/SENNA 8.6 MG TAB PO SCH ×4 (08:18→21:30)
[2017-05-26] MEDS: PANTOPRAZOLE SOD 40 MG DELAYED RELEASE TAB PO SCH ×2 (08:18)
[2017-05-26] MEDS: ATORVASTATIN 20 MG TAB PO SCH ×2 (08:18)
[2017-05-26] MEDS: SODIUM CHLORIDE 0.9% FLUSH 10 ML FLUSH IV FLUSH SCH ×4 (08:19→21:31)
[2017-05-26] MEDS: LOSARTAN 25 MG TAB PO SCH ×2 (08:19)
[2017-05-26] MEDS: KETOCONAZOLE 2% CREAM 15 GM TOPICAL SCH ×4 (08:19→21:29)
[2017-05-26] MEDS: FLUTICASONE PROPIONATE 50 MCG/ACT 16 GM NASAL SPRAY EACH NARE SCH ×4 (08:20→21:30)
[2017-05-26] MEDS ORDERED: PILL SPLITTER OTHER PRN ×2 (09:00)
[2017-05-26] MEDS ORDERED: OLOPATADINE OPTH EACH EYE SCH ×2 (09:00)
[2017-05-26 12:00] VITALS: BP 186/74; PULSE 80; RESP 18; TEMP 98.1; O2SAT 96
--- NOTE | 2017-05-26 15:01 | HHI.PR ---
Subjective Remarks Patient doing well. No nausea or vomiting. He is having diarrhea. Tolerating liquid diet. Does not have abdominal pain however he states if he pushes on his lower abdomen it is tender. Objective Vitals Vital Signs Date Time Temp Pulse Resp B/P (MAP) Pulse Ox O2 Delivery O2 Flow Rate FiO2 05/26/17 08:00 96.1 72 18 139/80 (99) 94 05/26/17 00:00 98.0 77 18 131/93 (106) 94 05/25/17 20:00 98.1 77 18 149/81 (103) 96 05/25/17 16:00 97.7 75 16 137/85 (102) 97 I/O 05/25/17 05/25/17 05/25/17 05/26/17 05/26/17 05/26/17 07:00 15:00 23:00 07:00 15:00 23:00 Intake Total 1000 ml 1008 ml 1217 ml Balance 1000 ml 1008 ml 1217 ml Intake Oral 100 ml IV Total 1000 ml 1008 ml 1117 ml # Voids 1 1 # Bowel Movements 1 0 Result Diagram: 05/26/17 0630 05/26/17 0630 Objective Remarks GENERAL: Well-nourished, well-developed patient. SKIN: Warm and dry. HEAD: Normocephalic. EYES: No scleral icterus. No injection or drainage. NECK: Supple, trachea midline. No JVD or lymphadenopathy. CARDIOVASCULAR: Regular rate and rhythm without murmurs, gallops, or rubs. RESPIRATORY: Breath sounds equal bilaterally. No accessory muscle use. GASTROINTESTINAL: Abdomen soft, mild tenderness to palpation in lower midline abdomen without guarding, nondistended. EXTREMITIES: No cyanosis, or edema. NEUROLOGICAL: Awake, alert, and oriented x 3. Non-focal. A/P Problem List: (1) Small bowel obstruction due to adhesions ICD Code: K56.50 - Intestinal adhesions [bands], unspecified as to partial versus complete obstruction Status: Acute Assessment and Plan -Partial small bowel obstruction. Improving with conservative management. Having bowel movements. Discussed with general surgery Dr. Rivera, will advance to full diet. -Hypertension -continue home medications -GERD - continue PPI. -BPH. Continue Rapaflo. -Hyperlipidemia. Continue Crestor. -DVT prophylaxis with heparin subcutaneous. Ambreen Ventura MD May 26, 2017 15:01
[2017-05-26] MEDS: ACETAMINOPHEN 325 MG TAB PO PRN ×2 (21:32)
[2017-05-26 21:59] VITALS: BP 119/73; PULSE 64; RESP 20; TEMP 97.9; O2SAT 95
[2017-05-27] MEDS: ACETAMINOPHEN 325 MG TAB PO PRN ×2 (05:39)
[2017-05-27] MEDS: HEPARIN SODIUM - SQ 10,000 UNITS/ML VIAL SQ SCH ×2 (05:39)
[2017-05-27] MEDS: SODIUM CHLOR 0.9% 1000 ML INJ 1,000 ML IV SCH ×2 (06:49)
[2017-05-27 08:00] VITALS: BP 158/85; PULSE 72; RESP 18; TEMP 97.3; O2SAT 95
[2017-05-27] MEDS: LOSARTAN 25 MG TAB PO SCH ×2 (08:23)
[2017-05-27] MEDS: DOCUSATE SODIUM 50 MG/SENNA 8.6 MG TAB PO SCH ×2 (08:23)
[2017-05-27] MEDS: TAMSULOSIN HCL 0.4 MG CAP PO SCH ×2 (08:23)
[2017-05-27] MEDS: PANTOPRAZOLE SOD 40 MG DELAYED RELEASE TAB PO SCH ×2 (08:24)
[2017-05-27] MEDS: ALLOPURINOL 100 MG TAB PO SCH ×2 (08:24)
[2017-05-27] MEDS: SODIUM CHLORIDE 0.9% FLUSH 10 ML FLUSH IV FLUSH SCH ×2 (08:25)
[2017-05-27] MEDS: KETOCONAZOLE 2% CREAM 15 GM TOPICAL SCH ×2 (08:25)
[2017-05-27] MEDS: FLUTICASONE PROPIONATE 50 MCG/ACT 16 GM NASAL SPRAY EACH NARE SCH ×2 (08:25)
[2017-05-27] MEDS: ATORVASTATIN 20 MG TAB PO SCH ×2 (08:25)
--- NOTE | 2017-05-27 11:46 | HHI.PR ---
Subjective Subjective Notes no issues, +bms, no nausea Objective Vitals/I&O Vital Signs Date Time Temp Pulse Resp B/P (MAP) Pulse Ox O2 Delivery O2 Flow Rate FiO2 05/27/17 08:00 97.3 72 18 158/85 (109) 95 05/25/17 07:04 Room Air Abdomen: Other (soft mild ttp, incisional scars) A/P Assessment and Plan pSBO PLAN reg diet encourage oob check lytes continue non op mgnt ok to d/c home per surgical stand point Moises Rivera MD May 27, 2017 11:46
--- NOTE | 2017-05-27 12:08 | HHI.PR ---
Subjective Remarks Tolerating regular diet. Had another bowel movement this morning. No abdominal pain nausea or vomiting. Objective Vitals Vital Signs Date Time Temp Pulse Resp B/P (MAP) Pulse Ox O2 Delivery O2 Flow Rate FiO2 05/27/17 08:00 97.3 72 18 158/85 (109) 95 05/26/17 21:59 97.9 64 20 119/73 (88) 95 I/O 05/26/17 05/26/17 05/26/17 05/27/17 05/27/17 05/27/17 07:00 15:00 23:00 07:00 15:00 23:00 Intake Total 1217 ml 903 ml 1370 ml Balance 1217 ml 903 ml 1370 ml Intake Oral 100 ml 480 ml IV Total 1117 ml 903 ml 890 ml # Voids 1 4 # Bowel Movements 0 0 Result Diagram: 05/26/1730 05/26/17 0630 Objective Remarks GENERAL: Well-nourished, well-developed patient. SKIN: Warm and dry. HEAD: Normocephalic. EYES: No scleral icterus. No injection or drainage. NECK: Supple, trachea midline. No JVD or lymphadenopathy. CARDIOVASCULAR: Regular rate and rhythm without murmurs, gallops, or rubs. RESPIRATORY: Breath sounds equal bilaterally. No accessory muscle use. GASTROINTESTINAL: Abdomen soft, nontender, nondistended. EXTREMITIES: No cyanosis, or edema. NEUROLOGICAL: Awake, alert, and oriented x 3. Non-focal. A/P Problem List: (1) Small bowel obstruction due to adhesions ICD Code: K56.50 - Intestinal adhesions [bands], unspecified as to partial versus complete obstruction Status: Acute Assessment and Plan -Partial small bowel obstruction. Resolved with conservative management. Having bowel movements and tolerating regular diet. Discussed with general surgery Dr. Rivera, will discharge home. -Hypertension -continue home medications -GERD - continue PPI. -BPH. Continue Rapaflo. -Hyperlipidemia. Continue Crestor. -DVT prophylaxis with heparin subcutaneous. Ambreen Ventura MD May 27, 2017 12:08
== END 2017-05-27 12:59 | disposition home or self-care (01) | DRG 390 ==
LOC: PHED 04:01 → PHEDA 07:03 → PH3B 07:51
PROVIDERS: ADMIT Family Medicine; ATTEND Family Medicine
DX: K56.51 Intestinal adhesions [bands], with partial obstruction (principal); I10 Essential (primary) hypertension; K57.30 Diverticulosis of large intestine without perforation or abscess without bleeding; M19.90 Unspecified osteoarthritis, unspecified site; E78.5 Hyperlipidemia, unspecified; N40.0 Benign prostatic hyperplasia without lower urinary tract symptoms; K21.9 Gastro-esophageal reflux disease without esophagitis; Z85.46 Personal history of malignant neoplasm of prostate; Z92.3 Personal history of irradiation; I25.2 Old myocardial infarction
CPT/HCPCS: 74177; 80048; 80053; 81001; 82948; 83690; 85025; 96361; 96374; J1644; J2270; J7030; Q9967

== ENCOUNTER 2017-09-15 10:32 | Emergency (ER) | payer MEDICARE, OTHER ==
[~2017-09-15] VITALS: Ht 172.7 cm; Wt 95.9 kg
[~2017-09-15 10:32] MED LIST changes: -CIPR-9 PO; -METR-1 PO; -NORC5TAB PO
[2017-09-15 10:45] VITALS: BP 161/86; PULSE 102; RESP 16; TEMP 98.2; O2SAT 97
[2017-09-15] MEDS ORDERED: ALLO300T2 PO (12:09)
[2017-09-15] MEDS ORDERED: AUGM875T3 PO ×2 (12:10→13:49)
--- NOTE | 2017-09-15 13:35 | RADRPT ---
EXAM DATE/TIME: 09/15/2017 13:24 [place] COMPARISON: No previous studies available for comparison. INDICATIONS : Headache and sinus congestion. RADIATION DOSE: 63.78 CTDIvol (mGy) MEDICAL HISTORY : Hypertension. Hypercholesterolemia. CAD,Diverticulitis, prostate ca, tinnitus left ear SURGICAL HISTORY : Orthopedic, cataracts ENCOUNTER: Initial ACUITY: 3 days PAIN SCALE: 8/10 LOCATION: Bilateral cranial TECHNIQUE: Multiple contiguous axial images were obtained of the head. Using automated exposure control and adj ustment of the mA and/or kV according to patient size, radiation dose was kept as low as reasonably a chievable to obtain optimal diagnostic quality images. DICOM format image data is available electro nically for review and comparison. FINDINGS: CEREBRUM: The ventricles and cortical sulci are widened. There is decreased density in the cerebral white matte r. No evidence of midline shift, mass lesion, hemorrhage or acute infarction. No extra-axial fluid c ollections are seen. POSTERIOR FOSSA: The cerebellum and brainstem are intact. The 4th ventricle is midline. The cerebellopontine angle i s unremarkable. EXTRACRANIAL: The visualized portion of the orbits is intact. There appears to be scleral banding the left globe. T here is mild mucosal thickening at the maxillary sinuses. SKULL: The calvaria is intact. No evidence of skull fracture. CONCLUSION: 1. No acute intracranial abnormality seen. 2. Age-related atrophy and suspected small vessel ischemic change in the white matter. 3. Mild maxillary sinus disease. Rickey Rivas MD on September 15, 2017 at 13:32 Board Certified Radiologist. This report was verified electronically.
[2017-09-15] MEDS ORDERED: FLUT1SPR5 EACH NARE (13:49)
--- NOTE | 2017-09-15 13:49 | PD ---
HPI Chief Complaint: Headache Time Seen by Provider: 12:52 Travel History International Travel<30 days: No Contact w/Intl Traveler<30days: No Traveled to known affect area: No History of Present Illness HPI 82-year-old male presents emergency department for evaluation of a frontal headache 7 days. He reports the headache had a gradual onset and is associated with sinus pain and pressure. He is currently being treated for a sinus infection. He reports he had a difficult time sleeping last night because of the headache. He denies nausea or vomiting. No visual changes. No dizziness. No neck pain or fever. Reports he has had headaches in the past with sinus infections but this one seems to be more severe. He did not attempt to take any Tylenol for the pain. Symptom severity is moderate. No aggravating or alleviating factors. PFSH Past Medical History Arthritis: Yes Asthma: Yes Blood Disorders: No Heart Rhythm Problems: No Cancer: Yes (SKIN, PROSTATE) Cardiovascular Problems: Yes (CAD) High Cholesterol: Yes Chemotherapy: No Chest Pain: No Congestive Heart Failure: No Diabetes: No Diminished Hearing: No Diverticulitis: Yes Endocrine: No Gastrointestinal Disorders: Yes (HX DIVERTICULITIS ;GERD, CURRENT ABD. PAIN BEING REVIEWED) GERD: Yes Glaucoma: No Gout: Yes Genitourinary: Yes (HX PROSTATE CANCER- RADIATION [place] 2007) Hepatitis: No Hiatal Hernia: Yes Hypertension: Yes Immune Disorder: No Implanted Vascular Access Dvce: Yes Kidney Stones: No Musculoskeletal: Yes (ARTHRITIS, RIGHT SHOULDER PAIN, BACK SPASMS) Neurologic: No Psychiatric: No Reproductive: No Respiratory: Yes (ASTHMA (ACTIVITY INDUCED) ) Immunizations Current: Yes Myocardial Infarction: No Pancreatitis: Yes Radiation Therapy: No Renal Failure: No Thyroid Disease: No Ulcer: No Influenza Vaccination: Yes PNEUMOCCOCAL Vaccine (Year): 2010 Past Surgical History Abdominal Surgery: Yes (CHOLECYSTECTOMYAPPY; UMB. HERNIA REP., PTL. COLECTOMY/ ILEOSTOMY, ) AICD: No Appendectomy: Yes Body Medical Devices: MESH UMBILICAL HERNIA Cardiac Surgery: No Cholecystectomy: Yes Ear Surgery: No Endocrine Surgery: No Eye Surgery: Yes (CATARACT FILIPE., FILIPE. VITRECTOMY) Genitourinary Surgery: Yes (TURP) Gynecologic Surgery: No Insulin Pump: No Joint Replacement: Yes (PARTIAL LEFT KNEE) Neurologic Surgery: No Oral Surgery: No Pacemaker: No Thoracic Surgery: No Other Surgery: Yes (LEFT KNEE REPLACEMENT 2010, MULTIPLE SKIN CA REMOVALS) Social History Alcohol Use: Yes (OCCASIONAL BEER) Tobacco Use: No Substance Use: No Allergies-Medications (Allergen,Severity, Reaction): Coded Allergies: hydromorphone (Verified Adverse Reaction, Severe, Nausea/Vomiting, 09/16/17 ) PT DENIES, STATES HE GOT SICK D/T ODORS IN AREA, NOT DILAUDID morphine (Verified Adverse Reaction, Severe, HEADACHE , 09/16/17) Reported Meds & Prescriptions Reported Meds & Active Scripts Active Flonase Nasal [place] (Fluticasone Nasal [place]) 50 Mcg/Act [place] 50 Mcg EACH NARE BID Augmentin (Amoxicillin-Clavulanate) 875-125 Mg Tab 1 Tab PO BID 3 Days Reported Augmentin (Amoxicillin-Clavulanate) 875-125 Mg Tab 1 Tab PO BID Allopurinol 300 Mg Tab 150 Mg PO DAILY Flonase Nasal [place] (Fluticasone Nasal [place]) 50 Mcg/Act [place] 50 Mcg EACH NARE BID Ventolin Hfa 18 GM Inh (Albuterol Sulfate) 90 Mcg/Act Aer 1 Puff INH Q4H PRN Rapaflo (Silodosin) 8 Mg Cap 8 Mg PO DAILY Crestor (Rosuvastatin Calcium) 10 Mg Tab 10 Mg PO HS Omeprazole 40 Mg Cap 40 Mg PO DAILY Losartan (Losartan Potassium) 25 Mg Tab 25 Mg PO DAILY Ketoconazole Topical 2% Cream 1 Applic TOPICAL BID Review of Systems Except as stated in HPI: all other systems reviewed are Neg General / Constitutional: No: Fever HENT: Positive: Headaches, Other (sinus pain and pressure) Cardiovascular: No: Chest Pain or Discomfort Respiratory: No: Shortness of Breath Gastrointestinal: No: Abdominal Pain Genitourinary: No: Dysuria Physical Exam Narrative GENERAL: Alert and well-appearing 82-year-old male SKIN: Warm and dry. HEAD: Atraumatic. Normocephalic. EYES: Pupils equal and round. No scleral icterus. No injection or drainage. EOMs intact ENT: No nasal bleeding or discharge. Mucous membranes pink and moist. + Tenderness over the frontal and maxillary sinuses. NECK: Trachea midline. No JVD. No meningismus CARDIOVASCULAR: Regular rate and rhythm. RESPIRATORY: No accessory muscle use. Clear to auscultation. Breath sounds equal bilaterally. GASTROINTESTINAL: Abdomen soft, non-tender, nondistended. Hepatic and splenic margins not palpable. MUSCULOSKELETAL: Extremities without clubbing, cyanosis, or edema. No obvious deformities. NEUROLOGICAL: Awake and alert. No obvious cranial nerve deficits. Motor grossly within normal limits. Five out of 5 muscle strength in the arms and legs. Normal speech. PSYCHIATRIC: Appropriate mood and affect; insight and judgment normal. Data Data Last Documented VS Orders Orders Ct Brain W/O Iv Contrast(Rout) (09/15/17 ) Acetaminophen (Tylenol) (09/15/17 14:00) MDM Medical Decision Making Medical Screen Exam Complete: Yes Emergency Medical Condition: Yes Differential Diagnosis Sinus headache, tension headache, ICH, sinusitis Narrative Course 82-year-old male here with sinus pain and pressure 1 week. He is currently being treated for sinusitis. He has tenderness over the frontal or maxillary sinuses. He has a normal neurologic exam. CT scan of the brain reveal no acute intracranial abnormality, it does show mild maxillary disease. He is nontoxic appearing. He is to continue his Augmentin which I will extend for several more days. I will also add Flonase. He is to follow-up his primary doctor. 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 Continue Augmentin as directed. Flonase nasal spray as directed. Follow-up with her doctor. Return if he developed new or worsening symptoms. Scripts Fluticasone Nasal [place] (Flonase Nasal [place]) 50 Mcg/Act [place] 50 MCG EACH NARE BID for Allergies, #1 BOTTLE 0 Refills Prov: Patt Roque 09/15/17 Amoxicillin-Clavulanate (Augmentin) 875-125 Mg Tab 1 TAB PO BID for Infection for 3 Days, #6 TAB 0 Refills Prov: Patt Roque 09/15/17 Disposition: 01 DISCHARGE HOME Condition: Stable Patt Roque Sep 15, 2017 13:49
[2017-09-15] MEDS ORDERED: ACETAMINOPHEN 500 MG CPLT PO ONE (14:00)
== END 2017-09-15 14:01 | disposition home or self-care (01) ==
LOC: PHED 10:32 → PHEFT 14:01
DX: J32.0 Chronic maxillary sinusitis (principal); R51 Headache; I10 Essential (primary) hypertension; I25.10 Atherosclerotic heart disease of native coronary artery without angina pectoris; E78.00 Pure hypercholesterolemia, unspecified; J45.909 Unspecified asthma, uncomplicated; Z85.46 Personal history of malignant neoplasm of prostate; Z85.828 Personal history of other malignant neoplasm of skin; Z88.5 Allergy status to narcotic agent; Z79.2 Long term (current) use of antibiotics; Z79.899 Other long term (current) drug therapy
CPT/HCPCS: 70450; 99283

== ENCOUNTER 2017-09-16 20:20 | Observation (INO) | payer MEDICARE, OTHER ==
[~2017-09-16] VITALS: Ht 175.3 cm; Wt 95.0 kg
[~2017-09-16 20:20] MED LIST changes: -ALLO100 PO; +ALLO300T2 PO; +AUGM875T3 PO; -PATA0.2S EACH EYE
[2017-09-16 20:25] VITALS: BP 140/89; PULSE 104; RESP 18; TEMP 98.4; O2SAT 94
[2017-09-16] MEDS ORDERED: SODIUM CHLORIDE 0.9% FLUSH 10 ML FLUSH IV FLUSH PRN ×2 (20:30→23:45)
[2017-09-16 20:36] VITALS: O2SAT 96
[2017-09-16 20:55] LABS: AUTOMATED NEUTROPHIL # 8.3 TH/MM3 (1.8-7.7); BASOPHIL # 0.1 TH/MM3 (0-0.2); BASOPHIL % 0.6 % (0.0-2.0); EOSINOPHIL # 0.1 TH/MM3 (0-0.4); EOSINOPHIL % 0.6 % (0.0-4.0); HEMATOCRIT 42.2 % (39.0-51.0); HEMOGLOBIN 14.1 GM/DL (13.0-17.0); LYMPH % 12.8 % (9.0-44.0); LYMPHOCYTE # 1.4 TH/MM3 (1.0-4.8); MEAN CELL VOLUME 86.2 FL (80.0-100.0); MEAN CORPUSCULAR HEMOGLOBIN 28.7 PG (27.0-34.0); MEAN CORPUSCULAR HGB CONC 33.3 % (32.0-36.0); MEAN PLATELET VOLUME 7.8 FL (7.0-11.0); PLATELET COUNT 243 TH/MM3 (150-450); RED CELL DISTRIBUTION WIDTH 15.9 % (11.6-17.2); WHITE BLOOD COUNT 10.8 TH/MM3 (4.0-11.0)
[2017-09-16 21:09] LABS: ALT (GPT) 34 U/L (12-78)
[2017-09-16 21:18] LABS: ALKALINE PHOSPHATASE 63 U/L (45-117); TOTAL BILIRUBIN ADULT 0.4 MG/DL (0.2-1.0); TOTAL PROTEIN 7.8 GM/DL (6.4-8.2); TROPONIN I LESS THAN 0.02 NG/ML (0.02-0.05)
[2017-09-16 21:26] LABS: ALBUMIN 4.1 GM/DL (3.4-5.0); AST (GOT) 51 U/L (15-37); BICARBONATE 24.2 MEQ/L (21.0-32.0); BLOOD UREA NITROGEN 18 MG/DL (7-18); CALCIUM 9.6 MG/DL (8.5-10.1); CHLORIDE 98 MEQ/L (98-107); CREATININE 1.71 MG/DL (0.60-1.30); GLOMERULAR FILTRATION RATE 39 ML/MIN (>89); GLUCOSE,RANDOM 135 MG/DL (74-106); INTERNATIONAL NORMALIZED RATIO 1.1 RATIO; PROTHROMBIN TIME - PATIENT 10.9 SEC (9.8-11.6); SODIUM (NA) 133 MEQ/L (136-145)
--- NOTE | 2017-09-16 21:32 | RADRPT ---
EXAM DATE/TIME: 09/16/2017 21:10 [facility] COMPARISON: CT BRAIN W/O CONTRAST, September 15, 2017, 13:24. INDICATIONS : Trauma; fall. Altered mental status. RADIATION DOSE: 39.33 CTDIvol (mGy) MEDICAL HISTORY : Cardiovascular disease. Pancreatitis. Hypertension.GERD, Gout, Hiatal hernia SURGICAL HISTORY : Appendectomy. Cholecystectomy. ENCOUNTER: Initial ACUITY: 1 day PAIN SCALE: 5/10 LOCATION: cranial TECHNIQUE: Multiple contiguous axial images were obtained of the head. Using automated exposure control and adj ustment of the mA and/or kV according to patient size, radiation dose was kept as low as reasonably a chievable to obtain optimal diagnostic quality images. DICOM format image data is available electro nically for review and comparison. FINDINGS: CEREBRUM: The ventricles are normal for age. No evidence of midline shift, mass lesion, hemorrhage or acute in farction. No extra-axial fluid collections are seen. POSTERIOR FOSSA: The cerebellum and brainstem are intact. The 4th ventricle is midline. The cerebellopontine angle i s unremarkable. EXTRACRANIAL: The visualized portion of the orbits is intact. SKULL: The calvaria is intact. No evidence of skull fracture. CONCLUSION: 1. No acute findings. Cortical volume loss unchanged from September 15. Guido Wells MD on September 16, 2017 at 21:29 Board Certified Radiologist. This report was verified electronically.
[2017-09-16 21:35] LABS: ACETAMINOPHEN LESS THAN 2.0 MCG/ML (10.0-30.0)
--- NOTE | 2017-09-16 21:38 | RADRPT ---
EXAM DATE/TIME: 09/16/2017 21:10 [facility] COMPARISON: No previous studies available for comparison. INDICATIONS : Sinus infection; patient was seen yesterday in [place]. RADIATION DOSE: 13.68 CTDIvol (mGy) MEDICAL HISTORY : Cardiovascular disease. Pancreatitis. Hypertension.GERD, Gout, Hiatal hernia SURGICAL HISTORY : Appendectomy. Cholecystectomy. ENCOUNTER: Subsequent ACUITY: 2 days PAIN SCORE: 5/10 LOCATION: facial sinuses TECHNIQUE: Volumetric scanning of the paranasal sinuses was performed. Using automated exposure control and adj ustment of the mA and/or kV according to patient size, radiation dose was kept as low as reasonably a chievable to obtain optimal diagnostic quality images. DICOM format image data is available electro nically for review and comparison. FINDINGS: There are postop changes of sinus surgery the ostiomeatal complexes. There is mucosal thickening in t he maxillary sinuses and ethmoid air cells bilaterally. Sphenoid sinus and frontal sinus are relative ly clear. No air-fluid levels. No acute bony abnormalities. CONCLUSION: 1. Maxillary and ethmoid sinus mucosal thickening. Postop surgical changes at the ostiomeatal complex bilaterally with patent sinus ostia. No air-fluid levels. Guido Wells MD on September 16, 2017 at 21:35 Board Certified Radiologist. This report was verified electronically.
--- NOTE | 2017-09-16 21:39 | RADRPT ---
EXAM DATE/TIME: 09/16/2017 21:17 [facility] COMPARISON: No previous studies available for comparison. INDICATIONS : Syncopal episode. MEDICAL HISTORY : Hypertension. Hypercholesterolemia. Diverticulitis. CAD Prostate ca. SURGICAL HISTORY : None. ENCOUNTER: Subsequent ACUITY: 2 days PAIN SCORE: 0/10 LOCATION: Bilateral chest FINDINGS: A single view of the chest demonstrates the lungs to be symmetrically aerated without evidence of mas s, infiltrate or effusion. The cardiomediastinal contours are unremarkable. Osseous structures are intact. CONCLUSION: No acute disease. Guido Wells MD on September 16, 2017 at 21:37 Board Certified Radiologist. This report was verified electronically.
[2017-09-16] MEDS ORDERED: SODIUM CHLOR 0.9% 1000 ML INJ 1,000 ML IV ONE ×2 (21:45→22:00)
[2017-09-16 21:48] LABS: LACTIC ACID SEPSIS PROTOCOL 4.6 mmol/L (0.4-2.0)
[2017-09-16] MEDS ORDERED: PIPERACIL-TAZO 3.375 GM PREMIX 50 ML IV ONE (22:00)
[2017-09-16 22:27] VITALS: BP 141/88; PULSE 90; RESP 16; O2SAT 97
[2017-09-16 22:51] LABS: BILIRUBIN, URINE NEG (NEG); BLOOD, URINE SMALL (NEG); GLUCOSE,URINE NEG (NEG); HYALINE CAST, URINE 23 /lpf (RARE); KETONE, URINE NEG (NEG); MUCUS URINE FEW /lpf (OCC); NITRITE,URINE NEG (NEG); URINE COLOR YELLOW (YELLW/STRAW); URINE LEUKOCYTE ESTERASE NEG (NEG)
[2017-09-16] MEDS ORDERED: MAGNESIUM HYDROXIDE SUSP 30 ML CUP PO PRN (23:45)
[2017-09-16] MEDS ORDERED: LACTULOSE SYRUP 20 GM/30 ML CUP PO PRN (23:45)
[2017-09-16] MEDS ORDERED: ONDANSETRON HCL 4 MG/2 ML VIAL IVP PRN (23:45)
[2017-09-16] MEDS ORDERED: SENNOSIDES 8.6 MG TAB PO PRN (23:45)
[2017-09-16] MEDS ORDERED: BISACODYL 10 MG SUPP RECTAL PRN (23:45)
[2017-09-16] MEDS ORDERED: ACETAMINOPHEN 325 MG TAB PO PRN (23:45)
--- NOTE | 2017-09-16 23:46 | HHI.HP ---
HPI Service [facility] Primary Care Physician Jamila Allen MD Admission Diagnosis Sepsis, Acute Kidney Injury Diagnoses: (1) Encephalopathy Diagnosis: Principal (2) JONATHAN (acute kidney injury) Diagnosis: Principal (3) Lactic acidosis Diagnosis: Principal Travel History International Travel<30 Days: No Contact w/Intl Traveler <30 Da: No Traveled to Known Affected Are: No History of Present Illness This is an 82-year-old male with PMH of HTN, Prostate CA, Hyperlipidemia and CAD who is brought to the ER secondary to AMS and generalized weakness. Pt poor historian, report obtained from . states pt recently started treatment for sinusitis, on Augmentin. Seen in ER on 09/15/17 for c/o headache, CT Head w/ no acute findings, mild maxillary sinus disease, was discharged home and instructed to continue antibiotics. Today, noted pt to be confused, putting dirty dishes in the refrigerator in addition to c/o weakness w/ fall. No head trauma or LOC reported. Pt oriented to person/place, not time. On arrival, BP 161/86, HR 102, O2 sat 97% on RA, Afebrile. CBC unremarkable. Creatinine 1.71, previously 1.10 on 05/26/17. Lactic Acid 4.6, repeat 3.2. Troponin negative. INR 1.1. UA negative. Urine Drug Screen negative. Alcohol negative. CXR with no acute findings. CT Head w/ no acute findings. CT Sinuses w/ maxillary and ethmoid mucosal thickening, no air-fluid levels. Review of Systems Except as stated in HPI: all other systems reviewed are Neg ROS: 14 point review of systems otherwise negative. Past Family Social History Past Medical History PMH: HTN, Prostate CA, Hyperlipidemia and CAD Past Surgical History PAST SURGICAL HISTORY: Cholecystectomy, Hernia Repair, Partial Colectomy/ Ileostomy, Appendectomy, TURP, Cataract Surgery, Left Knee Replacement Allergies: Coded Allergies: hydromorphone (Verified Adverse Reaction, Severe, Nausea/Vomiting, 09/16/17 ) PT DENIES, STATES HE GOT SICK D/T ODORS IN AREA, NOT DILAUDID morphine (Verified Adverse Reaction, Severe, HEADACHE , 09/16/17) Family History PAST FAMILY HISTORY: Reviewed. No h/o DM or CAD Social History PAST SOCIAL HISTORY: Occasional beer. Negative for tobacco or drugs. Physical Exam Vital Signs Vital Signs Date Time Temp Pulse Resp B/P (MAP) Pulse Ox O2 Delivery O2 Flow Rate FiO2 09/16/17 22:27 90 16 141/88 (105) 97 Nasal Cannula 2.00 09/16/17 20:36 96 Nasal Cannula 2.00 09/16/17 20:25 98.4 104 18 140/89 (106) 94 Physical Exam PE: GENERAL: Elderly white male in no acute distress. HEENT: PERRLA, EOMI. No scleral icterus or conjunctival pallor. No lid lag or facial droop. CARDIOVASCULAR: Regular rate and rhythm. No obvious murmurs to auscultation. No chest tenderness to palpation. RESPIRATORY: No obvious rhonchi or wheezing. Clear to auscultation. Breath sounds equal bilaterally. GASTROINTESTINAL: Abdomen soft, non-tender, nondistended. BS normal. MUSCULOSKELETAL: Extremities without clubbing, cyanosis, or edema. No obvious deformities. NEUROLOGICAL: Awake, alert, confused, oriented to person/place. No focal neurologic deficits. Moving both upper and lower extremities spontaneously. Laboratory Laboratory Tests Test 09/16/17 20:35 09/16/17 20:45 09/16/17 22:10 09/16/17 22:20 White Blood Count 10.8 Red Blood Count 4.90 Hemoglobin 14.1 Hematocrit 42.2 Mean Corpuscular Volume 86.2 Mean Corpuscular Hemoglobin 28.7 Mean Corpuscular Hemoglobin Concent 33.3 Red Cell Distribution Width 15.9 Platelet Count 243 Mean Platelet Volume 7.8 Neutrophils (%) (Auto) 77.0 Lymphocytes (%) (Auto) 12.8 Monocytes (%) (Auto) 9.0 Eosinophils (%) (Auto) 0.6 Basophils (%) (Auto) 0.6 Neutrophils # (Auto) 8.3 Lymphocytes # (Auto) 1.4 Monocytes # (Auto) 1.0 Eosinophils # (Auto) 0.1 Basophils # (Auto) 0.1 CBC Comment DIFF FINAL Differential Comment Prothrombin Time 10.9 Prothromb Time International Ratio 1.1 Activated Partial Thromboplast Time 26.1 Blood Urea Nitrogen 18 Creatinine 1.71 Random Glucose 135 Total Protein 7.8 Albumin 4.1 Calcium Level 9.6 Alkaline Phosphatase 63 Aspartate Amino Transf (AST/SGOT) 51 Alanine Aminotransferase (ALT/SGPT) 34 Total Bilirubin 0.4 Sodium Level 133 Potassium Level 5.1 Chloride Level 98 Carbon Dioxide Level 24.2 Anion Gap 11 Estimat Glomerular Filtration Rate 39 Lactic Acid Level 4.6 3.2 Ammonia 30 Troponin I LESS THAN 0.02 Thyroid Stimulating Hormone 3rd Gen 4.270 Salicylates Level LESS THAN 1.7 Acetaminophen Level LESS THAN 2.0 Ethyl Alcohol Level LESS THAN 3 Blood Gas Puncture Site IV Blood Gas Patient Temperature 98.6 Venous Blood pH 7.38 Venous Blood Partial Pressure CO2 42 Venous Blood Partial Pressure O2 24 Venous Blood HCO3 25 Venous Blood Oxygen Saturation 39 Venous Blood Oxygen Content 7.6 Venous Blood Base Excess 0.0 Oxygen Delivery Device NASAL CANNULA Blood Gas Liter Flow 2 Urine Color YELLOW Urine Turbidity CLEAR Urine pH 6.0 Urine Specific [place] 1.027 Urine Protein 300 Urine Glucose (UA) NEG Urine Ketones NEG Urine Occult Blood SMALL Urine Nitrite NEG Urine Bilirubin NEG Urine Urobilinogen LESS THAN 2.0 Urine Leukocyte Esterase NEG Urine RBC 1 Urine WBC 1 Urine Hyaline Casts 23 Urine Granular Casts 1 Urine Mucus FEW Microscopic Urinalysis Comment CATH-CULT NOT IND Urine Opiates Screen NEG Urine Barbiturates Screen NEG Urine Amphetamines Screen NEG Urine Benzodiazepines Screen NEG Urine Cocaine Screen NEG Urine Cannabinoids Screen NEG Date/Time Source Procedure Growth Status 09/16/17 20:39 Blood Peripheral Aerobic Blood Culture Pending Received 09/16/17 20:39 Blood Peripheral Anaerobic Blood Culture Pending Received Result Diagram: 09/16/[id number] Caprini VTE Risk Assessment Caprini VTE Risk Assessment: No/Low Risk (score <= 1) Caprini Risk Assessment Model Point Value = 1 Point Value = 2 Point Value = 3 Point Value = 5 Age 41-60 Minor surgery BMI > 25 kg/m2 Swollen legs Varicose veins or History of unexplained or recurrent spontaneous Oral contraceptives or hormone replacement Sepsis (< 1 month) Serious lung disease, including pneumonia (< 1 month) Abnormal pulmonary function Acute myocardial infarction Congestive heart failure (< 1 month) History of inflammatory bowel disease Medical patient at bed rest Age 61-74 Arthroscopic surgery Major open surgery (> 45 min) Laparoscopic surgery (> 45 min) Malignancy Confined to bed (> 72 hours) Immobilizing plaster cast Central venous access Age >= 75 History of VTE Family history of VTE Factor V Leiden Prothrombin [id number] Lupus anticoagulant Anticardiolipin antibodies Elevated serum homocysteine Heparin-induced thrombocytopenia Other congenital or acquired thrombophilia Stroke (< 1 month) Elective arthroplasty Hip, pelvis, or leg fracture Acute spinal cord injury (< 1 month) Prophylaxis Regimen Total Risk Factor Score Risk Level Prophylaxis Regimen 0-1 Low Early ambulation 2 Moderate Order ONE of the following: *Sequential Compression Device (SCD) *Heparin 5000 units SQ BID 3-4 Higher Order ONE of the following medications: *Heparin 5000 units SQ TID *Enoxaparin/Lovenox 40 mg SQ daily (WT < 150 kg, CrCl > 30 mL/min) *Enoxaparin/Lovenox 30 mg SQ daily (WT < 150 kg, CrCl > 10-29 mL/min) *Enoxaparin/Lovenox 30 mg SQ BID (WT < 150 kg, CrCl > 30 mL/min) AND/OR *Sequential Compression Device (SCD) 5 or more Highest Order ONE of the following medications: *Heparin 5000 units SQ TID (Preferred with Epidurals) *Enoxaparin/Lovenox 40 mg SQ daily (WT < 150 kg, CrCl > 30 mL/min) *Enoxaparin/Lovenox 30 mg SQ daily (WT < 150 kg, CrCl > 10-29 mL/min) *Enoxaparin/Lovenox 30 mg SQ BID (WT < 150 kg, CrCl > 30 mL/min) AND *Sequential Compression Device (SCD) Assessment and Plan Problem List: (1) Encephalopathy ICD Code: G93.40 - Encephalopathy, unspecified (2) JONATHAN (acute kidney injury) ICD Code: N17.9 - Acute kidney failure, unspecified (3) Lactic acidosis ICD Code: E87.2 - Acidosis Assessment and Plan A/P: 1. Encephalopathy: acute onset of confusion noted by , CT Head w/ no acute findings, images reviewed by me. Admit for Observation, Neuro Cheks. IVF for hydration. U/a negative for UTI, no obvious source of infection, continue w/ treatment for sinusitis. CT Sinuses w/ maxillary/ethmoid sinus mucosal thickening, no air-fluid levels. 2. JONATHAN: Creatinine 1.71, previously 1.10 on 11/4/17. U/a negative for UTI. IVF for hydration. Repeat labs in am. 3. Lactic Acidosis: Lactate 4.6, s/p IVF, repeat Lactic Acid 3.2, trending down to 2.5. Continue IVF, repeat Lactic Acid. 4. DVT Prophylaxis: SCD/Teds. 5. Social work for d/c planning as needed. 6. Case discussed w/ ER physician at length, labs/records/imaging reviewed by me. Rona Infante MD Sep 16, 2017 23:46
[2017-09-17] MEDS ORDERED: ALBUTEROL SULFATE 90 MCG/ACT HFA 8 GM INHALER INH PRN
[2017-09-17] MEDS: SODIUM CHLOR 0.9% 1000 ML INJ 1,000 ML IV SCH ×3 (00:22→23:04)
--- NOTE | 2017-09-17 00:34 | PD ---
HPI . Altered mental status Chief Complaint: Altered Mental Status Time Seen by Provider: 20:28 Travel History International Travel<30 days: No Contact w/Intl Traveler<30days: No Traveled to known affect area: No History of Present Illness HPI 82-year-old male recently diagnosed with sinusitis, as noted by and patient to have generalized weakness since last night, increased confusion today and increasing weakness to the point where patient is having difficulty standing, fell attempting to get out of bed to go the bathroom 3 times hitting his head on the nightstand. Not forcefully as per patient or patient's . Patient presents via EMS, awake and oriented to person and place but not to time. Patient quite confused. Able to move himself off of the ambulance stretcher onto hospital bed with some difficulty. No obvious focal weakness. Patient is a limited historian secondary to confusion noted above. EMS noted no focal neurological signs other than confusion and altered mental status and generalized weakness. No quantified fever, patient's stated that she felt a little warm. Denies headache, visual changes, stiff neck, chest pain, cough, shortness of breath, abdominal pain, dysuria urgency frequency. PFSH Past Medical History Narrative Medical Past medical history reviewed Arthritis: Yes Asthma: Yes Blood Disorders: No Heart Rhythm Problems: No Cancer: Yes (SKIN, PROSTATE) Cardiovascular Problems: Yes (CAD) High Cholesterol: Yes Chemotherapy: No Chest Pain: No Congestive Heart Failure: No Diabetes: No Diminished Hearing: No Diverticulitis: Yes Endocrine: No Gastrointestinal Disorders: Yes (HX DIVERTICULITIS ;GERD, CURRENT ABD. PAIN BEING REVIEWED) GERD: Yes Glaucoma: No Gout: Yes Genitourinary: Yes (HX PROSTATE CANCER- RADIATION [place] 2007) Hepatitis: No Hiatal Hernia: Yes Hypertension: Yes Immune Disorder: No Implanted Vascular Access Dvce: Yes Kidney Stones: No Musculoskeletal: Yes (ARTHRITIS, RIGHT SHOULDER PAIN, BACK SPASMS) Neurologic: No Psychiatric: No Reproductive: No Respiratory: Yes (ASTHMA (ACTIVITY INDUCED) ) Immunizations Current: Yes Myocardial Infarction: No Pancreatitis: Yes Radiation Therapy: No Renal Failure: No Thyroid Disease: No Ulcer: No Tetanus Vaccination: > 5 Years Influenza Vaccination: Yes PNEUMOCCOCAL Vaccine (Year): 2010 Past Surgical History Abdominal Surgery: Yes (CHOLECYSTECTOMYAPPY; [facility]. HERNIA REP., PTL. COLECTOMY/ ILEOSTOMY, ) AICD: No Appendectomy: Yes Body Medical Devices: MESH UMBILICAL HERNIA Cardiac Surgery: No Cholecystectomy: Yes Ear Surgery: No Endocrine Surgery: No Eye Surgery: Yes (CATARACT FILIPE., FILIPE. VITRECTOMY) Genitourinary Surgery: Yes (TURP) Gynecologic Surgery: No Insulin Pump: No Joint Replacement: Yes (PARTIAL LEFT KNEE) Neurologic Surgery: No Oral Surgery: No Pacemaker: No Thoracic Surgery: No Other Surgery: Yes (LEFT KNEE REPLACEMENT 2010, MULTIPLE SKIN CA REMOVALS) Social History Alcohol Use: Yes (OCCASIONAL BEER) Tobacco Use: No Substance Use: No Allergies-Medications (Allergen,Severity, Reaction): Coded Allergies: hydromorphone (Verified Adverse Reaction, Severe, Nausea/Vomiting, 09/16/17 ) PT DENIES, STATES HE GOT SICK D/T ODORS IN AREA, NOT DILAUDID morphine (Verified Adverse Reaction, Severe, HEADACHE , 09/16/17) Reported Meds & Prescriptions Reported Meds & Active Scripts Active Flonase Nasal [place] (Fluticasone Nasal [place]) 50 Mcg/Act [place] 50 Mcg EACH NARE BID Augmentin (Amoxicillin-Clavulanate) 875-125 Mg Tab 1 Tab PO BID 3 Days Reported Augmentin (Amoxicillin-Clavulanate) 875-125 Mg Tab 1 Tab PO BID Allopurinol 300 Mg Tab 150 Mg PO DAILY Flonase Nasal [place] (Fluticasone Nasal [place]) 50 Mcg/Act [place] 50 Mcg EACH NARE BID Ventolin Hfa 18 GM Inh (Albuterol Sulfate) 90 Mcg/Act Aer 1 Puff INH Q4H PRN Rap[place]flo (Silodosin) 8 Mg Cap 8 Mg PO DAILY Crestor (Rosuvastatin Calcium) 10 Mg Tab 10 Mg PO HS Omeprazole 40 Mg Cap 40 Mg PO DAILY Losartan (Losartan Potassium) 25 Mg Tab 25 Mg PO DAILY Ketoconazole Topical 2% Cream 1 Applic TOPICAL BID Narrative Medication Allergies and medications reviewed Review of Systems ROS Limitations: Altered Mental Status, Poor Historian Except as stated in HPI: all other systems reviewed are Neg General / Constitutional: No: Fever Eyes: No: Visual changes HENT: No: Headaches Cardiovascular: No: Chest Pain or Discomfort Respiratory: No: Shortness of Breath Gastrointestinal: No: Abdominal Pain Genitourinary: No: Dysuria Musculoskeletal: No: Pain Skin: No Rash Neurologic: Positive: Weakness, Change in Mentation, No: Dizziness, Syncope, Focal Abnormalities, Headache, Incontinence, Seizures, Sensory Disturbance Psychiatric: No: Depression Endocrine: No: Polydipsia Hematologic/Lymphatic: No: Easy Bruising Physical Exam Exam Limitations: Altered Mental Status, Poor Historian Narrative GENERAL: Awake and alert, confused, oriented to person place not time. Generalized weakness as noted in HPI. See below SKIN: Warm and dry. Color is normal diaphoresis cyanosis or pallor HEAD: Atraumatic. Normocephalic. EYES: Pupils equal and round. No scleral icterus. No injection or drainage. ENT: No nasal bleeding or discharge. Mucous membranes pink and moist. NECK: Trachea midline. No JVD. Supple full range of motion CARDIOVASCULAR: Regular rate and rhythm. S1-S2 no murmurs rubs gallops RESPIRATORY: No accessory muscle use. Clear to auscultation. Breath sounds equal bilaterally. GASTROINTESTINAL: Abdomen soft, non-tender, nondistended. Hepatic and splenic margins not palpable. MUSCULOSKELETAL: Extremities without clubbing, cyanosis, or edema. No obvious deformities. NEUROLOGICAL: Awake and alert. No obvious focal deficits. Strength is 4+5 all 4 extremities. There is no drift. Reflexes normal. Coordination grossly intact. Memory impaired PSYCHIATRIC: Appropriate mood and affect; patient is pleasant Data Data Last Documented VS Vital Signs Date Time Temp Pulse Resp B/P (MAP) Pulse Ox O2 Delivery O2 Flow Rate FiO2 09/16/17 22:27 90 16 141/88 (105) 97 Nasal Cannula 2.00 09/16/17 20:25 98.4 Orders Orders Electrocardiogram (09/16/17 20:30) Ammonia (09/16/17 20:30) Complete Blood Count With Diff (09/16/17 20:30) Comprehensive Metabolic Panel (09/16/17 20:30) Prothrombin Time / Inr (Pt) (09/16/17 20:30) Act Partial Throm Time (Ptt) (09/16/17 20:30) Troponin I (09/16/17 20:30) Thyroid Stimulating Hormone (09/16/17 20:30) Urinalysis - C+S If Indicated (09/16/17 20:30) Lactic Acid Sepsis Protocol (09/16/17 20:30) Blood Culture (09/16/17 20:30) Chest, Single Ap (09/16/17 20:30) Ct Brain W/O Iv Contrast(Rout) (09/16/17 20:30) Blood Glucose (09/16/17 20:30) Ecg Monitoring (09/16/17 20:30) Iv Access Insert/Monitor (09/16/17 20:30) Oximetry (09/16/17 20:30) Sodium Chloride 0.9% Flush (Ns Flush) (09/16/17 20:30) Drug Screen, Random Urine (09/16/17 20:30) Alcohol (Ethanol) (09/16/17 20:30) Tylenol (Acetaminophen) (09/16/17 20:30) Salicylates (Aspirin) (09/16/17 20:30) Ct Sinuses W/O Iv Contrast (09/16/17 ) Blood Gas Venous (Vbg) (09/16/17 20:37) Sodium Chlor 0.9% 1000 Ml Inj (Ns 1000 M (09/16/17 21:45) Piperacil-Tazo 3.375 Gm Premix (Zosyn 3. (09/16/17 22:00) Sodium Chlor 0.9% 1000 Ml Inj (Ns 1000 M (09/16/17 22:00) Lactic Acid (09/16/17 22:27) Admit Order (Ed Use Only) (09/16/17 23:36) Labs Laboratory Tests Test 09/16/17 20:35 09/16/17 20:45 09/16/17 22:10 09/16/17 22:20 White Blood Count 10.8 TH/MM3 Red Blood Count 4.90 MIL/MM3 Hemoglobin 14.1 GM/DL Hematocrit 42.2 % Mean Corpuscular Volume 86.2 FL Mean Corpuscular Hemoglobin 28.7 PG Mean Corpuscular Hemoglobin Concent 33.3 % Red Cell Distribution Width 15.9 % Platelet Count 243 TH/MM3 Mean Platelet Volume 7.8 FL Neutrophils (%) (Auto) 77.0 % Lymphocytes (%) (Auto) 12.8 % Monocytes (%) (Auto) 9.0 % Eosinophils (%) (Auto) 0.6 % Basophils (%) (Auto) 0.6 % Neutrophils # (Auto) 8.3 TH/MM3 Lymphocytes # (Auto) 1.4 TH/MM3 Monocytes # (Auto) 1.0 TH/MM3 Eosinophils # (Auto) 0.1 TH/MM3 Basophils # (Auto) 0.1 TH/MM3 CBC Comment DIFF FINAL Differential Comment Prothrombin Time 10.9 SEC Prothromb Time International Ratio 1.1 RATIO Activated Partial Thromboplast Time 26.1 SEC Blood Urea Nitrogen 18 MG/DL Creatinine 1.71 MG/DL Random Glucose 135 MG/DL Total Protein 7.8 GM/DL Albumin 4.1 GM/DL Calcium Level 9.6 MG/DL Alkaline Phosphatase 63 U/L Aspartate Amino Transf (AST/SGOT) 51 U/L Alanine Aminotransferase (ALT/SGPT) 34 U/L Total Bilirubin 0.4 MG/DL Sodium Level 133 MEQ/L Potassium Level 5.1 MEQ/L Chloride Level 98 MEQ/L Carbon Dioxide Level 24.2 MEQ/L Anion Gap 11 MEQ/L Estimat Glomerular Filtration Rate 39 ML/MIN Lactic Acid Level 4.6 mmol/L 3.2 mmol/L Ammonia 30 MCMOL/L Troponin I LESS THAN 0.02 NG/ML Thyroid Stimulating Hormone 3rd Gen 4.270 uIU/ML Salicylates Level LESS THAN 1.7 MG/DL Acetaminophen Level LESS THAN 2.0 MCG/ML Ethyl Alcohol Level LESS THAN 3 MG/DL Blood Gas Puncture Site IV Blood Gas Patient Temperature 98.6 Venous Blood pH 7.38 Venous Blood Partial Pressure CO2 42 mmHg Venous Blood Partial Pressure O2 24 mmHg Venous Blood HCO3 25 mmol/L Venous Blood Oxygen Saturation 39 % Venous Blood Oxygen Content 7.6 Vol % Venous Blood Base Excess 0.0 mmol/L Oxygen Delivery Device NASAL CANNULA Blood Gas Liter Flow 2 L/M Urine Color YELLOW Urine Turbidity CLEAR Urine pH 6.0 Urine Specific [place] 1.027 Urine Protein 300 mg/dL Urine Glucose (UA) NEG mg/dL Urine Ketones NEG mg/dL Urine Occult Blood SMALL Urine Nitrite NEG Urine Bilirubin NEG Urine Urobilinogen LESS THAN 2.0 MG/DL Urine Leukocyte Esterase NEG Urine RBC 1 /hpf Urine WBC 1 /hpf Urine Hyaline Casts 23 /lpf Urine Granular Casts 1 /lpf Urine Mucus FEW /lpf Microscopic Urinalysis Comment CATH-CULT NOT IND Urine Opiates Screen NEG Urine Barbiturates Screen NEG Urine Amphetamines Screen NEG Urine Benzodiazepines Screen NEG Urine Cocaine Screen NEG Urine Cannabinoids Screen NEG MDM Medical Decision Making Medical Screen Exam Complete: Yes Emergency Medical Condition: Yes Medical Record Reviewed: Yes Differential Diagnosis Altered mental status, sepsis, sinusitis, intracranial bleed, head injury Narrative Course Patient laboratory examinations reviewed, patient has high-end of normal white blood cell count 10.8. Patient's creatinine is elevated at 1.71. Previous creatinine noted at 1.10. Possible acute kidney injury Lactate 4.6. Patient received 2 L IV fluids, had blood cultures performed at presentation, Zosyn 3.375 g given. Repeat lactate 3.2 CT head no acute changes. Vacuous changes as noted from prior. CT sinuses notable for maxillary and ethmoid thickening consistent with recent diagnosis of sinusitis. Chest x-ray negative for acute infiltrate Urinalysis negative for UTI. Case discussed with Dr. Infante hospitalist service, admitted observation status for possible sepsis Diagnosis Primary Impression: Sepsis Qualified Codes: A41.9 - Sepsis, unspecified organism Additional Impression: Acute kidney injury Admitting Information Admitting Physician Requests: Observation Wes Barron MD Sep 17, 2017 00:34
[2017-09-17 02:12] VITALS: BP 129/83; PULSE 87; RESP 18; TEMP 98.8; O2SAT 93
[2017-09-17 05:17] LABS: AUTOMATED NEUTROPHIL # 9.1 TH/MM3 (1.8-7.7); BASOPHIL # 0.1 TH/MM3 (0-0.2); BASOPHIL % 0.9 % (0.0-2.0); EOSINOPHIL # 0.1 TH/MM3 (0-0.4); EOSINOPHIL % 0.8 % (0.0-4.0); HEMATOCRIT 38.1 % (39.0-51.0); HEMOGLOBIN 12.9 GM/DL (13.0-17.0); LYMPH % 15.3 % (9.0-44.0); LYMPHOCYTE # 1.9 TH/MM3 (1.0-4.8); MEAN CELL VOLUME 85.5 FL (80.0-100.0); MEAN CORPUSCULAR HEMOGLOBIN 28.9 PG (27.0-34.0); MEAN CORPUSCULAR HGB CONC 33.8 % (32.0-36.0); MONO % 9.6 % (0.0-8.0); MONOCYTE # 1.2 TH/MM3 (0-0.9); NEUT % 73.4 % (16.0-70.0); PLATELET COUNT 214 TH/MM3 (150-450); RED BLOOD COUNT 4.46 MIL/MM3 (4.50-5.90); RED CELL DISTRIBUTION WIDTH 15.8 % (11.6-17.2); WHITE BLOOD COUNT 12.3 TH/MM3 (4.0-11.0)
[2017-09-17 05:33] LABS: ALBUMIN 3.7 GM/DL (3.4-5.0); ALKALINE PHOSPHATASE 52 U/L (45-117); ALT (GPT) 27 U/L (12-78); AST (GOT) 27 U/L (15-37); BICARBONATE 24.1 MEQ/L (21.0-32.0); BLOOD UREA NITROGEN 15 MG/DL (7-18); CALCIUM 8.9 MG/DL (8.5-10.1); CHLORIDE 104 MEQ/L (98-107); CREATININE 1.36 MG/DL (0.60-1.30); GLOMERULAR FILTRATION RATE 50 ML/MIN (>89); GLUCOSE,RANDOM 101 MG/DL (74-106); SODIUM (NA) 137 MEQ/L (136-145); TOTAL BILIRUBIN ADULT 0.5 MG/DL (0.2-1.0); TOTAL PROTEIN 6.7 GM/DL (6.4-8.2)
[2017-09-17 07:43] VITALS: BP 135/90; PULSE 90; RESP 19; TEMP 98.8; O2SAT 95
[2017-09-17] MEDS: SODIUM CHLORIDE 0.9% FLUSH 10 ML FLUSH IV FLUSH SCH ×2 (09:00→21:00)
[2017-09-17] MEDS: DOCUSATE SODIUM 50 MG/SENNA 8.6 MG TAB PO SCH ×2 (09:00→21:20)
[2017-09-17] MEDS: FLUTICASONE PROPIONATE 50 MCG/ACT 16 GM NASAL SPRAY NASAL SCH ×2 (10:21→21:19)
[2017-09-17] MEDS: AMOXICILLIN/CLAVULANATE K 875 MG TAB PO SCH ×2 (10:21→21:20)
[2017-09-17] MEDS: PANTOPRAZOLE SOD 40 MG DELAYED RELEASE TAB PO SCH (10:22)
[2017-09-17 12:05] VITALS: BP 139/87; PULSE 88; RESP 18; TEMP 98.8; O2SAT 94
--- NOTE | 2017-09-17 15:36 | EKG ---
Date Performed: 09/16/2017 Time Performed: 20:32:43 PTAGE: 82 years EKG: SINUS TACHYCARDIA Probable arm lead reversal Repeat tracing with appropriate lead placement necessary ABNORMAL ECG PREVIOUS TRACING : 11/17/2014 10.59 DOCTOR: Sergio Mahoney Interpretating Date/Time 09/17/2017 15:36:07
[2017-09-17 16:02] VITALS: BP 142/88; PULSE 90; RESP 18; TEMP 98.6; O2SAT 93
--- NOTE | 2017-09-17 16:14 | HHI.PR ---
Subjective Remarks Follow up encephalopathy, acute kidney injury, lactic acidosis. Patient reports dizziness. No chest pain or dyspnea. Feels better than he did last night. Objective Vitals Vital Signs Date Time Temp Pulse Resp B/P (MAP) Pulse Ox O2 Delivery O2 Flow Rate FiO2 09/17/17 16:02 98.6 90 18 142/88 (106) 93 09/17/17 12:05 98.8 88 18 139/87 (104) 94 09/17/17 09:30 Room Air 09/17/17 07:43 98.8 90 19 135/90 (105) 95 09/17/17 03:46 Room Air 09/17/17 02:12 98.8 87 18 129/83 (98) 93 09/17/17 00:38 09/16/17 22:27 90 16 141/88 (105) 97 Nasal Cannula 2.00 09/16/17 20:36 96 Nasal Cannula 2.00 09/16/17 20:25 98.4 104 18 140/89 (106) 94 I/O 09/16/17 09/16/17 09/16/17 09/17/17 09/17/17 09/17/17 07:00 15:00 23:00 07:00 15:00 23:00 Output Total 600 ml Balance -600 ml Output Urine Total 600 ml # Voids 1 2 # Bowel Movements 1 Result Diagram: 09/17/1745409/17/17 0455 Imaging Last Impressions Head CT 09/16/172029 Signed Impressions: Service Date/Time: Saturday, September 16, 2017 21:10 - CONCLUSION: 1. No acute findings. Cortical volume loss unchanged from September 15. Guido Wells MD Chest X-Ray 09/16/172029 Signed Impressions: Service Date/Time: Saturday, September 16, 2017 21:17 - CONCLUSION: No acute disease. Guido Wells MD Sinuses CT 09/16/17 Signed Impressions: Service Date/Time: Saturday, September 16, 2017 21:10 - CONCLUSION: 1. Maxillary and ethmoid sinus mucosal thickening. Postop surgical changes at the ostiomeatal complex bilaterally with patent sinus ostia. No air-fluid levels. Guido Wells MD Objective Remarks General: Elderly male in no acute distress. Heart: Regular rate and rhythm. No murmur. Lungs: Clear to auscultation bilaterally. No wheezes, rales, or rhonchi. Breathing is nonlabored. Abdomen: Soft, nontender, nondistended. Extremities: No lower extremity edema. Psych: Alert and oriented. Procedures None Urinary Catheter: No Vascular Central Line Catheter: No A/P Problem List: (1) Encephalopathy ICD Code: G93.40 - Encephalopathy, unspecified (2) JONATHAN (acute kidney injury) ICD Code: N17.9 - Acute kidney failure, unspecified (3) Lactic acidosis ICD Code: E87.2 - Acidosis Assessment and Plan 1. Encephalopathy: Patient developed acute onset of confusion. Head CT is negative. Mental status has improved. 2. Sinusitis: Continue antibiotics. 3. Lactic acidosis: Serum lactic acid is trending down. Recheck in the morning. Continue IV fluids. 4. Acute kidney injury: Continue IV fluids. Repeat labs in the morning. 5. DVT prophylaxis: MILDRED Harris. Discharge Planning Possible discharge home tomorrow pending labs. Vazquez Sales MD Sep 17, 2017 16:14
[2017-09-17 20:57] VITALS: BP 136/76; PULSE 94; RESP 16; TEMP 99.4; O2SAT 96
[2017-09-18 05:27] VITALS: BP 140/81; PULSE 82; RESP 16; TEMP 98; O2SAT 95
[2017-09-18 07:25] LABS: BICARBONATE 27.9 MEQ/L (21.0-32.0); CALCIUM 9.4 MG/DL (8.5-10.1); CREATININE 1.37 MG/DL (0.60-1.30)
[2017-09-18] MEDS: FLUTICASONE PROPIONATE 50 MCG/ACT 16 GM NASAL SPRAY NASAL SCH (08:08)
[2017-09-18] MEDS: SODIUM CHLOR 0.9% 1000 ML INJ 1,000 ML IV SCH (08:08)
[2017-09-18] MEDS: SODIUM CHLORIDE 0.9% FLUSH 10 ML FLUSH IV FLUSH SCH (08:08)
[2017-09-18] MEDS: AMOXICILLIN/CLAVULANATE K 875 MG TAB PO SCH (08:09)
[2017-09-18] MEDS: PANTOPRAZOLE SOD 40 MG DELAYED RELEASE TAB PO SCH (08:09)
[2017-09-18] MEDS: DOCUSATE SODIUM 50 MG/SENNA 8.6 MG TAB PO SCH (08:09)
[2017-09-18 08:22] VITALS: BP 117/72; PULSE 95; RESP 20; TEMP 98.3; O2SAT 95
[2017-09-18 12:45] VITALS: BP 114/61; PULSE 86; RESP 18; TEMP 98.7; O2SAT 94
--- NOTE | 2017-09-18 15:39 | HHI.DCPOC ---
Discharge Care Plan Diagnosis: (1) JONATHAN (acute kidney injury) (2) Lactic acidosis (3) Encephalopathy Goals to Promote Your Health * To prevent worsening of your condition and complications * To maintain your health at the optimal level Directions to Meet Your Goals Take your medications as prescribed Follow your dietary instruction Follow activity as directed Keep your appointments as scheduled Take your immunizations and boosters as scheduled If your symptoms worsen call your PCP, if no PCP go to Urgent Care Center or Emergency Room Smoking is Dangerous to Your Health. Avoid second hand smoke Call the 24-hour hour crisis hotline for domestic abuse at Nirmala Andino MD Sep 18, 2017 15:39
--- NOTE | 2017-09-18 15:40 | HHI.FF ---
Face to Face Verification Diagnosis: (1) Gait disturbance (2) Encephalopathy (3) Lactic acidosis (4) JONATHAN (acute kidney injury) Physical Therapy Order: Evaluate and Treat, Improve ambulation, Strength and gait training Home Health Nursing Order: Medical education Nursing assessment with vital signs I have seen patient Yeison Forrest on 09/18/17. My clinical findings support the need for the requested home health care services because: Limited ability to care for self High risk of falls I certify that my clinical findings support that this patient is homebound because: Unsteady gait/balance Nirmala Andino MD Sep 18, 2017 15:40
--- NOTE | 2017-09-18 15:41 | HHI.DS ---
Discharge Summary Admission Date Sep 16, 2017 at 23:38 Discharge Date: Sep 18, 2017 Admitting Diagnosis Encephalopathy Lactic acidosis Acute Kidney Injury (1) Encephalopathy ICD Code: G93.40 - Encephalopathy, unspecified (2) JONATHAN (acute kidney injury) ICD Code: N17.9 - Acute kidney failure, unspecified (3) Lactic acidosis ICD Code: E87.2 - Acidosis Procedures None Brief History - From Admission HPI from the admitting physician This is an 82-year-old male with PMH of HTN, Prostate CA, Hyperlipidemia and CAD who is brought to the ER secondary to AMS and generalized weakness. Pt poor historian, report obtained from . states pt recently started treatment for sinusitis, on Augmentin. Seen in ER on 09/15/17 for c/o headache, CT Head w/ no acute findings, mild maxillary sinus disease, was discharged home and instructed to continue antibiotics. Today, noted pt to be confused, putting dirty dishes in the refrigerator in addition to c/o weakness w/ fall. No head trauma or LOC reported. Pt oriented to person/place, not time. On arrival, BP 161/86, HR 102, O2 sat 97% on RA, Afebrile. CBC unremarkable. Creatinine 1.71, previously 1.10 on 05/26/17. Lactic Acid 4.6, repeat 3.2. Troponin negative. INR 1.1. UA negative. Urine Drug Screen negative. Alcohol negative. CXR with no acute findings. CT Head w/ no acute findings. CT Sinuses w/ maxillary and ethmoid mucosal thickening, no air-fluid levels. CBC/BMP: 09/17/17 0455 09/18/17 0636 Significant Findings Laboratory Tests Test 09/16/17 20:35 09/16/17 20:45 09/16/17 22:10 09/16/17 22:20 Neutrophils (%) (Auto) 77.0 % (16.0-70.0) Monocytes (%) (Auto) 9.0 % (0.0-8.0) Neutrophils # (Auto) 8.3 TH/MM3 (1.8-7.7) Monocytes # (Auto) 1.0 TH/MM3 (0-0.9) Creatinine 1.71 MG/DL (0.60-1.30) Random Glucose 135 MG/DL (74-106) Aspartate Amino Transf (AST/SGOT) 51 U/L (15-37) Sodium Level 133 MEQ/L (136-145) Estimat Glomerular Filtration Rate 39 ML/MIN (>89) Lactic Acid Level 4.6 mmol/L (0.4-2.0) 3.2 mmol/L (0.4-2.0) Troponin I LESS THAN 0.02 NG/ML Thyroid Stimulating Hormone 3rd Gen 4.270 uIU/ML (0.358-3.740) Salicylates Level LESS THAN 1.7 MG/DL Acetaminophen Level LESS THAN 2.0 MCG/ML Venous Blood Partial Pressure CO2 42 mmHg (44-48) Venous Blood Partial Pressure O2 24 mmHg (35-40) Venous Blood Oxygen Saturation 39 % (70-76) Venous Blood Oxygen Content 7.6 Vol % (9.0-17.0) Urine Protein 300 mg/dL (NEG-TRACE) Urine Occult Blood SMALL (NEG) Urine Mucus FEW /lpf (OCC) Test 09/17/17 00:20 09/17/17 04:55 09/18/17 06:36 Lactic Acid Level 2.5 mmol/L (0.4-2.0) 2.4 mmol/L (0.4-2.0) White Blood Count 12.3 TH/MM3 (4.0-11.0) Red Blood Count 4.46 MIL/MM3 (4.50-5.90) Hemoglobin 12.9 GM/DL (13.0-17.0) Hematocrit 38.1 % (39.0-51.0) Neutrophils (%) (Auto) 73.4 % (16.0-70.0) Monocytes (%) (Auto) 9.6 % (0.0-8.0) Neutrophils # (Auto) 9.1 TH/MM3 (1.8-7.7) Monocytes # (Auto) 1.2 TH/MM3 (0-0.9) Creatinine 1.36 MG/DL (0.60-1.30) 1.37 MG/DL (0.60-1.30) Estimat Glomerular Filtration Rate 50 ML/MIN (>89) 50 ML/MIN (>89) Imaging Last Impressions Head CT 09/16/172029 Signed Impressions: Service Date/Time: Saturday, September 16, 2017 21:10 - CONCLUSION: 1. No acute findings. Cortical volume loss unchanged from September 15. Guido Wells MD Chest X-Ray 09/16/172029 Signed Impressions: Service Date/Time: Saturday, September 16, 2017 21:17 - CONCLUSION: No acute disease. Guido Wells MD Sinuses CT 09/16/17 Signed Impressions: Service Date/Time: Saturday, September 16, 2017 21:10 - CONCLUSION: 1. Maxillary and ethmoid sinus mucosal thickening. Postop surgical changes at the ostiomeatal complex bilaterally with patent sinus ostia. No air-fluid levels. Guido Wells MD PE at Discharge General: Elderly male in no acute distress. Heart: Regular rate and rhythm. No murmur. Lungs: Clear to auscultation bilaterally. No wheezes, rales, or rhonchi. Breathing is nonlabored. Abdomen: Soft, nontender, nondistended. Extremities: No lower extremity edema. Psych: Alert and oriented. Pt update on day of discharge Patient reports he is feeling great. He reports he is back to his baseline. His at bedside agreed. He is anxious to go home. Hospital Course 82-year-old male who presented to the hospital with acute onset of confusion noted by his . Patient underwent workup for encephalopathy. Head CT was unremarkable. He appeared to be dehydrated on presentation and was treated with IV fluid with improvement of his symptoms. He does have sinusitis on CT and will continue his home antibiotics dose. On presentation the patient also had acute kidney injury likely secondary to dehydration, he is renal function improved with IV fluid hydration. He was advised to follow-up outpatient with PCP and was encouraged to drink plenty of fluid. The patient's lactic acid was also elevated which was likely secondary to dehydration. This corrected with IV hydration. His symptoms completely resolved. He was evaluated by physical therapy recommended home health and physical therapy. He is deemed stable for discharge to follow-up outpatient with PCP. Pt Condition on Discharge: Good Discharge Disposition: Disch w/ Home Health Serv Discharge Time: > 30 minutes Discharge Instructions DIET: Follow Instructions for: Heart Healthy Diet Activities you can perform: Regular-No Restrictions Continued Medications: Albuterol 18 GM Inh (Ventolin Hfa 18 GM Inh) 90 Mcg/Act Aer 1 PUFF INH Q4H PRN for SHORTNESS OF BREATH, #1 INHALER 0 Refills Allopurinol (Allopurinol) 300 Mg Tab 150 MG PO DAILY for Gout, #30 TAB 0 Refills Amoxicillin-Clavulanate (Augmentin) 875-125 Mg Tab 1 TAB PO BID for Infection, TAB 0 Refills Fluticasone Nasal [place] (Flonase Nasal [place]) 50 Mcg/Act [place] 50 MCG EACH NARE BID for Allergies, #1 BOTTLE 0 Refills Fluticasone Nasal [place] (Flonase Nasal [place]) 50 Mcg/Act [place] 50 MCG EACH NARE BID for Allergies, #1 BOTTLE 0 Refills Ketoconazole Topical (Ketoconazole Topical) 2% Cream 1 APPLIC TOPICAL BID for Fungal Infection, #15 GM 0 Refills Losartan (Losartan) 25 Mg Tab 25 MG PO DAILY for Blood Pressure Management, #30 TAB 0 Refills Omeprazole (Omeprazole) 40 Mg Cap 40 MG PO DAILY, #30 CAP 0 Refills Rosuvastatin (Crestor) 10 Mg Tab 10 MG PO HS for Cholesterol Management, #30 TAB 0 Refills Silodosin (Rapaflo) 8 Mg Cap 8 MG PO DAILY for Manage Prostate Problems, #30 CAP 0 Refills Nirmala Andino MD Sep 18, 2017 15:41
[2017-09-18 15:51] VITALS: BP 147/77; PULSE 84; RESP 19; TEMP 98.3; O2SAT 94
[2017-09-18] MEDS ORDERED: ATORVASTATIN 20 MG TAB PO SCH (21:00)
[2017-09-18] MEDS ORDERED: TAMSULOSIN HCL 0.4 MG CAP PO SCH (21:00)
== END 2017-09-18 16:18 | disposition home or self-care (01) ==
LOC: NEPC 20:20 → NEDA 23:38 → NEPHCDU 09-17 00:37
PROVIDERS: ADMIT Hospitalist; ATTEND Hospitalist
DX: G93.40 Encephalopathy, unspecified (principal); N17.9 Acute kidney failure, unspecified; E87.2 Acidosis; E86.0 Dehydration; F32.9 Major depressive disorder, single episode, unspecified; R00.0 Tachycardia, unspecified; R94.31 Abnormal electrocardiogram [ECG] [EKG]; R55 Syncope and collapse; I25.10 Atherosclerotic heart disease of native coronary artery without angina pectoris; I10 Essential (primary) hypertension; E78.00 Pure hypercholesterolemia, unspecified; J45.909 Unspecified asthma, uncomplicated; K21.9 Gastro-esophageal reflux disease without esophagitis; M19.90 Unspecified osteoarthritis, unspecified site; Z79.899 Other long term (current) drug therapy; Z85.46 Personal history of malignant neoplasm of prostate; Z96.652 Presence of left artificial knee joint; W06.XXXA Fall from bed, initial encounter
CPT/HCPCS: 70450; 70486; 71045; 80048; 80053; 80307; 81001; 82140; 82805; 83605; 84443; 84484; 85025; 85610; 85730; 87040; 93005; 96361; 96365; 97162; 99285; G0378; G8987; G8988; J2543; J7030

== ENCOUNTER 2017-10-10 18:24 | Emergency (ER) | payer MEDICARE, OTHER ==
[~2017-10-10] VITALS: Ht 172.7 cm; Wt 94.3 kg
[2017-10-10 19:19] VITALS: BP 120/68; PULSE 79; RESP 16; TEMP 98
[2017-10-10 22:53] VITALS: BP 122/79; PULSE 75; RESP 18; O2SAT 97
[2017-10-10] MEDS ORDERED: SODIUM CHLORIDE 0.9% FLUSH 10 ML FLUSH IV FLUSH PRN (23:00)
--- NOTE | 2017-10-10 23:01 | PD ---
HPI Chief Complaint: Abdominal Pain Time Seen by Provider: 22:55 Travel History International Travel<30 days: No Contact w/Intl Traveler<30days: No Traveled to known affect area: No History of Present Illness HPI 82-year-old male presents to the emergency department by private transportation for complaint of abdominal pain and abdominal distention. Patient is noted discomfort since last evening. Patient states after taking Phazyme he has noted some belching and scant flatus and . Patient denies any vomiting. Patient has no nausea at this time. Patient states pain has decreased from 5/ 10 to 0/10 in intensity. Patient feels like abdomen is less tense than it's earlier distention at this time. Patient has had previous abdominal surgeries associated with diverticulitis and due to adhesions. No hematemesis, no coffee- ground emesis, and no feculent emesis. Patient denies fever but had a mild chill this evening prior to coming to the hospital. No dysuria, frequency, urgency, flank pain, or hematuria. Patient also denies any chest pain or shortness of breath or cough. Patient also has history of hypertension, gouty arthritis, dyslipidemia and BPH. [facility] Past Medical History Narrative Medical Gouty arthritis asthma CAD hypertension dyslipidemia prostate cancer partial colectomy ileostomy reversal TURP cholecystectomy; occasional alcohol use; nursing notes reviewed Arthritis: Yes Asthma: Yes Blood Disorders: No Heart Rhythm Problems: No Cancer: Yes (SKIN, PROSTATE) Cardiovascular Problems: Yes (CAD) High Cholesterol: Yes Chemotherapy: No Chest Pain: No Congestive Heart Failure: No Diabetes: No Diminished Hearing: No Diverticulitis: Yes Endocrine: No Gastrointestinal Disorders: Yes (HX DIVERTICULITIS ;GERD, CURRENT ABD. PAIN BEING REVIEWED) GERD: Yes Glaucoma: No Gout: Yes Genitourinary: Yes (HX PROSTATE CANCER- RADIATION [place] 2007) Hepatitis: No Hiatal Hernia: Yes Hypertension: Yes Immune Disorder: No Implanted Vascular Access Dvce: Yes Kidney Stones: No Medical other: No Musculoskeletal: Yes (ARTHRITIS, RIGHT SHOULDER PAIN, BACK SPASMS) Neurologic: No Psychiatric: No Reproductive: No Respiratory: Yes (ASTHMA (ACTIVITY INDUCED) ) Immunizations Current: Yes Myocardial Infarction: No Pancreatitis: Yes Radiation Therapy: No Renal Failure: No Thyroid Disease: No Ulcer: No Tetanus Vaccination: > 5 Years Influenza Vaccination: Yes PNEUMOCCOCAL Vaccine (Year): 2010 Past Surgical History Abdominal Surgery: Yes (CHOLECYSTECTOMYAPPY; [facility]. HERNIA REP., PTL. COLECTOMY/ ILEOSTOMY, ) AICD: No Appendectomy: Yes Body Medical Devices: MESH UMBILICAL HERNIA Cardiac Surgery: No Cholecystectomy: Yes Ear Surgery: No Endocrine Surgery: No Eye Surgery: Yes (CATARACT FILIPE., FILIPE. VITRECTOMY) Genitourinary Surgery: Yes (TURP) Gynecologic Surgery: No Insulin Pump: No Joint Replacement: Yes (PARTIAL LEFT KNEE) Neurologic Surgery: No Oral Surgery: No Pacemaker: No Thoracic Surgery: No Other Surgery: Yes (LEFT KNEE REPLACEMENT 2010, MULTIPLE SKIN CA REMOVALS) Social History Alcohol Use: Yes (OCCASIONAL BEER) Tobacco Use: No Substance Use: No Allergies-Medications (Allergen,Severity, Reaction): Coded Allergies: hydromorphone (Verified Adverse Reaction, Severe, Nausea/Vomiting, 10/10/17 ) PT DENIES, STATES HE GOT SICK D/T ODORS IN AREA, NOT DILAUDID morphine (Verified Adverse Reaction, Severe, HEADACHE , 10/10/17) Reported Meds & Prescriptions Reported Meds & Active Scripts Active Reported Allopurinol 300 Mg Tab 150 Mg PO DAILY Flonase Nasal [place] (Fluticasone Nasal [place]) 50 Mcg/Act [place] 50 Mcg EACH NARE BID Ventolin Hfa 18 GM Inh (Albuterol Sulfate) 90 Mcg/Act Aer 1 Puff INH Q4H PRN Rapaflo (Silodosin) 8 Mg Cap 8 Mg PO DAILY Crestor (Rosuvastatin Calcium) 10 Mg Tab 10 Mg PO HS Omeprazole 40 Mg Cap 40 Mg PO DAILY Losartan (Losartan Potassium) 25 Mg Tab 25 Mg PO DAILY Ketoconazole Topical 2% Cream 1 Applic TOPICAL BID Review of Systems Except as stated in HPI: all other systems reviewed are Neg General / Constitutional: No: Fever, Chills HENT: No: Congestion Cardiovascular: No: Chest Pain or Discomfort, Palpitations, Diaphoresis, Dyspnea on exertion Respiratory: No: Cough, Shortness of Breath, Wheezing Gastrointestinal: Positive: Abdominal Pain, Constipation, No: Nausea, Vomiting , Diarrhea, Hematemesis, Hematochezia Genitourinary: No: Urgency, Frequency, Dysuria, Flank Pain Musculoskeletal: No: Myalgias, Arthralgias Skin: No Rash Neurologic: No: Weakness Psychiatric: No: Anxiety Hematologic/Lymphatic: No: Lymph Node Enlargement Physical Exam Narrative GENERAL: Well-developed well-nourished pleasant male no acute distress or respiratory distress SKIN: Warm and dry. HEAD: Normocephalic. EYES: No scleral icterus. No injection or drainage. NECK: Supple, trachea midline. No JVD or lymphadenopathy. CARDIOVASCULAR: Regular rate and rhythm without murmurs, gallops, or rubs. RESPIRATORY: Breath sounds equal bilaterally. No accessory muscle use. GASTROINTESTINAL: Abdomen soft, non-tender, nondistended. No guarding or rebound. MUSCULOSKELETAL: No cyanosis, or edema. BACK: Nontender without obvious deformity. No CVA tenderness. Data Data Last Documented VS Vital Signs Date Time Temp Pulse Resp B/P (MAP) Pulse Ox O2 Delivery O2 Flow Rate FiO2 10/11/17 00:00 74 18 126/74 (91) 97 Room Air 10/10/17 19:19 98.0 Orders Orders Complete Blood Count With Diff (10/10/17 22:55) Comprehensive Metabolic Panel (10/10/17 22:55) Lipase (10/10/17 22:55) Urinalysis - C+S If Indicated (10/10/17 22:55) Ct Abd/Pel W Iv Contrast(Rout) (10/10/17 22:55) Iv Access Insert/Monitor (10/10/17 22:55) Ecg Monitoring (10/10/17 22:55) Oximetry (10/10/17 22:55) Sodium Chloride 0.9% Flush (Ns Flush) (10/10/17 23:00) Iohexol 350 Inj (Omnipaque 350 Inj) (10/10/17 23:59) Labs Laboratory Tests Test 10/10/17 23:15 White Blood Count 11.4 TH/MM3 Red Blood Count 4.58 MIL/MM3 Hemoglobin 13.2 GM/DL Hematocrit 40.5 % Mean Corpuscular Volume 88.4 FL Mean Corpuscular Hemoglobin 28.9 PG Mean Corpuscular Hemoglobin Concent 32.7 % Red Cell Distribution Width 15.5 % Platelet Count 180 TH/MM3 Mean Platelet Volume 7.7 FL Neutrophils (%) (Auto) 74.5 % Lymphocytes (%) (Auto) 15.0 % Monocytes (%) (Auto) 6.8 % Eosinophils (%) (Auto) 2.2 % Basophils (%) (Auto) 1.5 % Neutrophils # (Auto) 8.4 TH/MM3 Lymphocytes # (Auto) 1.7 TH/MM3 Monocytes # (Auto) 0.8 TH/MM3 Eosinophils # (Auto) 0.3 TH/MM3 Basophils # (Auto) 0.2 TH/MM3 CBC Comment DIFF FINAL Differential Comment Urine Color YELLOW Urine Turbidity CLEAR Urine pH 5.5 Urine Specific [place] GREATER/EQUAL 1.030 Urine Protein 100 mg/dL Urine Glucose (UA) NEG mg/dL Urine Ketones NEG mg/dL Urine Occult Blood NEG Urine Nitrite NEG Urine Bilirubin NEG Urine Urobilinogen 0.2 MG/DL Urine Leukocyte Esterase NEG Urine RBC 0-2 /hpf Urine WBC 3-5 /hpf Urine Squamous Epithelial Cells 0-5 /hpf Urine Bacteria NONE /hpf Microscopic Urinalysis Comment CULT NOT INDICATED Blood Urea Nitrogen 16 MG/DL Creatinine 1.20 MG/DL Random Glucose 90 MG/DL Total Protein 7.1 GM/DL Albumin 3.7 GM/DL Calcium Level 8.6 MG/DL Alkaline Phosphatase 58 U/L Aspartate Amino Transf (AST/SGOT) 23 U/L Alanine Aminotransferase (ALT/SGPT) 29 U/L Total Bilirubin 0.4 MG/DL Sodium Level 139 MEQ/L Potassium Level 4.2 MEQ/L Chloride Level 106 MEQ/L Carbon Dioxide Level 24.2 MEQ/L Anion Gap 9 MEQ/L Estimat Glomerular Filtration Rate 58 ML/MIN Lipase 446 U/L [facility] Medical Decision Making Medical Screen Exam Complete: Yes Emergency Medical Condition: Yes Medical Record Reviewed: Yes Interpretation(s) Last Impressions Abdomen/Pelvis CT 10/10/17 2255 Signed Impressions: Service Date/Time: Tuesday, October 10, 2017 23:54 - CONCLUSION: 1. No acute findings. No dilated loops of small or large bowel. Juan Nava MD CBC & BMP Diagram 10/10/17 23:15 Total Protein 7.1, Albumin 3.7, Calcium Level 8.6, Alkaline Phosphatase 58, Aspartate Amino Transf (AST/SGOT) 23, Alanine Aminotransferase (ALT/SGPT) 29, Total Bilirubin 0.4; lipase 449, mildly elevated Vital Signs Date Time Temp Pulse Resp B/P (MAP) Pulse Ox O2 Delivery O2 Flow Rate FiO2 10/11/17 00:00 74 18 126/74 (91) 97 Room Air 10/10/17 23:15 96 10/10/17 22:53 75 18 122/79 (93) 97 Room Air 10/10/17 19:19 98.0 79 16 120/68 (85) Differential Diagnosis Abdominal pain, bowel obstruction, ileus also to consider abdominal aortic aneurysm renal colic diverticulitis with abscess/perforation Narrative Course IV access obtained specimens collected and sent for resulting patient kept n.p.o. CT abdomen pelvis ordered Patient resting comfortably waiting for lab results does not request any medication for nausea vomiting or for discomfort CBC with automated differential total white cell count 11,400 and 74.5% neutrophils this is minimal elevation chemistries are grossly within normal range lipase is minimally elevated at 446 patient denies any epigastric or periumbilical discomfort or pain Urinalysis is within normal limits CT abdomen pelvis reveals no evidence of bowel obstruction or acute process pancreas is normal At 12:40 AM patient reports pain remains 0/10 intensity patient no longer states that he feels mildly distended and abdomen is soft nontender to direct palpation without guarding or rebound and normal bowel sounds to auscultation. Patient is aware of lab results imaging results and is desirous of being discharged home. Patient is able to tolerate oral hydration in the emergency department. Patient has an appointment with his primary care provider scheduled tomorrow. At this time patient appears safe for outpatient management recommendation of following a clear liquid diet for next 12-24 hours keep appointment with his primary care provider may return to the emergency department for recheck of lipase level or to his primary care provider is to return the emergency department for any concerns or change in condition. Diagnosis Primary Impression: Abdominal pain Qualified Codes: R10.84 - Generalized abdominal pain Additional Impression: Elevated lipase Referrals: Jamila Allen MD 1 day keep scheduled appointment Patient Instructions: General Instructions Additional Instructions: Keep scheduled appointment with your primary care provider as already planned 1 day Recommend following clear liquid diet for next 12-24 hours avoiding and then advancing as tolerated to bland diet avoiding dairy products and into regular diet avoiding fried and fatty foods Return to the emergency department for pain fever vomiting or any concerns Monitor temperature for fever take as needed acetaminophen/Tylenol every 4 hours for fever 100.4F or greater Med/Other Pt SpecificInfo: No Change to Meds Disposition: 01 DISCHARGE HOME Condition: Stable Adelita Garnett MD Oct 10, 2017 23:01
[2017-10-10 23:15] VITALS: O2SAT 96
[2017-10-10 23:25] LABS: AUTOMATED NEUTROPHIL # 8.4 TH/MM3 (1.8-7.7); BASOPHIL # 0.2 TH/MM3 (0-0.2); BASOPHIL % 1.5 % (0.0-2.0); EOSINOPHIL # 0.3 TH/MM3 (0-0.4); EOSINOPHIL % 2.2 % (0.0-4.0); HEMATOCRIT 40.5 % (39.0-51.0); HEMOGLOBIN 13.2 GM/DL (13.0-17.0); LYMPHOCYTE # 1.7 TH/MM3 (1.0-4.8); MEAN CELL VOLUME 88.4 FL (80.0-100.0); MEAN CORPUSCULAR HEMOGLOBIN 28.9 PG (27.0-34.0); MEAN CORPUSCULAR HGB CONC 32.7 % (32.0-36.0); MEAN PLATELET VOLUME 7.7 FL (7.0-11.0); MONO % 6.8 % (0.0-8.0); MONOCYTE # 0.8 TH/MM3 (0-0.9); NEUT % 74.5 % (16.0-70.0); PLATELET COUNT 180 TH/MM3 (150-450); RED BLOOD COUNT 4.58 MIL/MM3 (4.50-5.90); RED CELL DISTRIBUTION WIDTH 15.5 % (11.6-17.2); WHITE BLOOD COUNT 11.4 TH/MM3 (4.0-11.0)
[2017-10-10 23:26] LABS: BILIRUBIN, URINE NEG (NEG); BLOOD, URINE NEG (NEG); GLUCOSE,URINE NEG (NEG); KETONE, URINE NEG (NEG); NITRITE,URINE NEG (NEG); PH, URINE 5.5 (5.0-8.5); URINE COLOR YELLOW (YELLW/STRAW); URINE LEUKOCYTE ESTERASE NEG (NEG)
[2017-10-10 23:30] LABS: RBC, URINE 0-2 /hpf (0-3); SQUAMOUS EPITHELIAL CELL URINE 0-5 /hpf (0-5)
[2017-10-10 23:32] LABS: CHLORIDE 106 MEQ/L (98-107); SODIUM (NA) 139 MEQ/L (136-145)
[2017-10-10 23:35] LABS: CALCIUM 8.6 MG/DL (8.5-10.1)
[2017-10-10 23:36] LABS: ALBUMIN 3.7 GM/DL (3.4-5.0); BICARBONATE 24.2 MEQ/L (21.0-32.0); BLOOD UREA NITROGEN 16 MG/DL (7-18); GLUCOSE,RANDOM 90 MG/DL (74-106)
[2017-10-10 23:39] LABS: ALT (GPT) 29 U/L (12-78); AST (GOT) 23 U/L (15-37); GLOMERULAR FILTRATION RATE 58 ML/MIN (>89)
[2017-10-10 23:40] LABS: TOTAL BILIRUBIN ADULT 0.4 MG/DL (0.2-1.0); TOTAL PROTEIN 7.1 GM/DL (6.4-8.2)
[2017-10-10 23:42] LABS: ALKALINE PHOSPHATASE 58 U/L (45-117)
[2017-10-10] MEDS ORDERED: IOHEXOL 350 MG/ML 10 ML VIAL (for RAD DIAG) IVCONTRAST ONE (23:59)
[2017-10-11] VITALS: BP 126/74; PULSE 74; RESP 18; O2SAT 97
--- NOTE | 2017-10-11 00:10 | RADRPT ---
EXAM DATE/TIME: 10/10/2017 23:54 [facility] COMPARISON: CT ABDOMEN & PELVIS W CONTRAST, May 25, 2017, 5:38. INDICATIONS : Abdominal distention. IV CONTRAST: 100 cc Omnipaque 350 (iohexol) IV ORAL CONTRAST: No oral contrast ingested. RADIATION DOSE: 20.78 CTDIvol (mGy) MEDICAL HISTORY : Hypertension. Diverticulitis. Carcinoma, prostate. SURGICAL HISTORY : Cholecystectomy. Appendectomy.Colectomy. Ileostomy. ENCOUNTER: Initial ACUITY: 1 day PAIN SCALE: 0/10 LOCATION: abdomen TECHNIQUE: Volumetric scanning of the abdomen and pelvis was performed. Using automated exposure control and ad justment of the mA and/or kV according to patient size, radiation dose was kept as low as reasonably achievable to obtain optimal diagnostic quality images. DICOM format image data is available electro nically for review and comparison. FINDINGS: LOWER LUNGS: The visualized lower lungs are clear. LIVER: Homogeneous density without lesion. There is no dilation of the biliary tree. Cholecystectomy. SPLEEN: Normal size without lesion. PANCREAS: Within normal limits. KIDNEYS: Normal in size and shape. There is no mass, stone or hydronephrosis. Stable bilateral renal cysts. ADRENAL GLANDS: Within normal limits. VASCULAR: There is no aortic aneurysm. BOWEL/MESENTERY: No dilated loops of small or large bowel. Anastomosis suture right lower quadrant without focal dist ention. Sigmoid diverticula without radiographic evidence of diverticulitis. Prominent amount of me senteric fat without inspiration. ABDOMINAL WALL: Within normal limits. RETROPERITONEUM: There is no lymphadenopathy. BLADDER: No wall thickening or mass. REPRODUCTIVE: Within normal limits. INGUINAL: There is no lymphadenopathy or hernia. MUSCULOSKELETAL: Within normal limits for patient age. CONCLUSION: 1. No acute findings. No dilated loops of small or large bowel. Juan Nava MD on October 11, 2017 at 0:03 Board Certified Radiologist. This report was verified electronically.
[2017-10-11 00:52] VITALS: BP 124/79; PULSE 74; RESP 18; O2SAT 97
== END 2017-10-11 01:01 | disposition home or self-care (01) ==
LOC: PHED 18:24
DX: R10.84 Generalized abdominal pain (principal); R74.8 Abnormal levels of other serum enzymes; I10 Essential (primary) hypertension; I25.10 Atherosclerotic heart disease of native coronary artery without angina pectoris; E78.00 Pure hypercholesterolemia, unspecified; M10.9 Gout, unspecified; E78.5 Hyperlipidemia, unspecified; N40.0 Benign prostatic hyperplasia without lower urinary tract symptoms; J45.909 Unspecified asthma, uncomplicated; Z85.46 Personal history of malignant neoplasm of prostate; Z85.828 Personal history of other malignant neoplasm of skin; Z88.5 Allergy status to narcotic agent; Z79.899 Other long term (current) drug therapy
CPT/HCPCS: 74177; 80053; 81001; 83690; 85025; 99284; Q9967